=== PATIENT | female | born 1965 | race Caucasian/White ===

== ENCOUNTER 2023-01-14 23:35 | Inpatient (IN) | payer MEDICAID, SELFPAY ==
[2023-01-14 23:36] VITALS: BP 139/117; PULSE 99; RESP 20; TEMP 36.8; O2SAT 96
--- NOTE | 2023-01-14 23:42 | W.ED.PSYCHS ---
HPI - Psych General: Chief Complaint: Psychiatric Symptoms Stated Complaint: SI Time Seen by Provider: 01/14/23 23:41 Source: patient and EMS Mode of arrival: EMS Limitations: no limitations History of Present Illness: 57-year-old female states that she has been having increasing depression. She states that she feels like she is treated poorly by her family and feels very alone she states she supposed to take meds for depression but she has not been taking them she states she is having suicidal thoughts she try to cut herself yesterday patient been admitted roughly 1 year ago to psych facility she denies any worsening improving factors Associated symptoms: Reports depression and suicidal ideation Review of Systems Const: Denies: fever(s), chills, body aches or change in appetite ENMT: Denies: throat pain or dental pain Card: Denies: chest pain Resp: Denies: dyspnea GI: Denies: abdominal pain, nausea, vomiting or diarrhea Musc: Denies: neck pain or back pain Skin/Breast: Denies: rash Neuro: Denies: headache(s) Psych: Reports: depression and suicidal ideation Physical Exam Const: COMMON NORMALS: patient oriented x3 HENMT: COMMON NORMALS: normocephalic and atraumatic HEAD & SCALP: normocephalic and atraumatic Eye: COMMON NORMALS: conjunctivae normal CONJUNCTIVA: Yes conjunctivae normal Neck/C-Spine: COMMON NORMALS: full ROM Chest: COMMONS NORMALS: normal inspection of the chest Resp: COMMON NORMALS: normal respiratory effort Cardio: COMMON NORMALS: regular rate RATE: regular rate Extremity: COMMON NORMALS: normal to inspection Neuro: COMMON NORMALS: patient oriented x3 Psych: COMMON NORMALS: mental status grossly normal MOOD & AFFECT: Yes depressed mood and Yes tearful THOUGHT CONTENT: Yes Suicidality present Course Vital Signs: Vital signs: Vital Signs Temperature 98.2 F 01/14/23 23:36 Pulse Rate 99 01/14/23 23:36 Respiratory Rate 20 H 01/14/23 23:36 Blood Pressure 139/117 01/14/23 23:36 Pulse Oximetry 96 01/14/23 23:36 [facility] - Psych Medical Decision Making Patient presents here with suicidal ideations she is medically cleared placed under 96-hour hold and will admit to the psych unit Medical Records I reviewed the patient's medical records. Lab Data I reviewed the patient's lab results. 01/14/23 00:00 01/14/23 00:00 Laboratory Results WBC 7.95 10^3/uL (3.29-11.43) 01/14/23 00:00 RBC 4.18 10^6/uL (3.85-5.65) 01/14/23 00:00 Hgb 12.70 g/dL (11.27-16.99) 01/14/23 00:00 Hct 38.1 % (36-47) 01/14/23 00:00 MCV 91.1 fl (85-98) 01/14/23 00:00 MCH 30.4 pg (27-33) 01/14/23 00:00 MCHC 33.3 g/dL (30-55) 01/14/23 00:00 RDW 12.7 % (12.1-15.1) 01/14/23 00:00 Plt Count 300 10^3/cmm (157-399) 01/14/23 00:00 MPV 8.6 fL (7.4-10.4) 01/14/23 00:00 Neut % (Auto) 64.1 % 01/14/23 00:00 Lymph % (Auto) 24.3 % 01/14/23 00:00 [place] % (Auto) 8.7 % 01/14/23 00:00 Eos % (Auto) 2.0 % 01/14/23 00:00 Baso % (Auto) 0.5 % 01/14/23 00:00 Neut # (Auto) 5.10 10^3/uL (1.8-7.7) 01/14/23 00:00 Lymph # (Auto) 1.9 10^3/uL (0.8-4.8) 01/14/23 00:00 [place] # (Auto) 0.7 10^3/uL (0.2-0.9) 01/14/23 00:00 Eos # (Auto) 0.2 10^3/uL (0.0-0.8) 01/14/23 00:00 Baso # (Auto) 0.0 10^3/uL (0.0-0.1) 01/14/23 00:00 Nucleated RBC % (auto) 0 % 01/14/23 00:00 Nucleated RBCs # 0.0 /100WBC 01/14/23 00:00 Sodium 141 mmol/L (136-145) 01/14/23 00:00 Potassium 3.2 mmol/L (3.5-5.1) L 01/14/23 00:00 Chloride 106 mmol/L (98-107) 01/14/23 00:00 Carbon Dioxide 23 mmol/L (22-29) 01/14/23 00:00 Anion Gap 15.2 (5-19) 01/14/23 00:00 BUN 12 mg/dL (6-20) 01/14/23 00:00 Creatinine 0.6 mg/dL (0.5-0.9) 01/14/23 00:00 GFR Calculation 102.3 mL/min (90-130) 01/14/23 00:00 Glucose 152 mg/dL (65-115) H 01/14/23 00:00 Calculated Osmolality 295 mOsm/kg (285-295) 01/14/23 00:00 Calcium 9.8 mg/dL (8.5-10.5) 01/14/23 00:00 Total Bilirubin 0.2 mg/dL (0.15-1.2) 01/14/23 00:00 AST 9 U/L (0-32) 01/14/23 00:00 ALT 8 U/L (0-33) 01/14/23 00:00 Alkaline Phosphatase 93 U/L (35-105) 01/14/23 00:00 Total Protein 7.0 g/dL (6.6-8.7) 01/14/23 00:00 Albumin 4.3 g/dL (3.5-5.2) 01/14/23 00:00 Globulin 2.7 g/dL (1.3-4.6) 01/14/23 00:00 Salicylates < 0.3 mg/dL (3-10) L 01/14/23 00:00 Acetaminophen 6.7 ug/mL (10-30) L 01/14/23 00:00 Ethyl Alcohol < 10 mg/dL (0-10) 01/14/23 00:00 No radiology studies performed this visit Discharge Plan Discharge Admit Provider: Noam Ambrocio Clinical Impression: Suicidal ideation Condition: Stable Coding Level of Care Code ED Neighborhood Conservation Officer for Daren Henry
[2023-01-15 00:19] LABS: Basophils % 0.5 %; Eosinophils # 0.2 10^3/uL (0.0-0.8); Hematocrit 38.1 % (36-47); Lymphocytes # 1.9 10^3/uL (0.8-4.8); Lymphocytes % 24.3 %; Mean Corpuscular HGB Conc 33.3 g/dL (30-55); Mean Corpuscular Hemoglobin 30.4 pg (27-33); Mean Corpuscular Volume 91.1 fl (85-98); Mean Platelet Volume 8.6 fL (7.4-10.4); Monocytes # 0.7 10^3/uL (0.2-0.9); Monocytes % 8.7 %; Neutrophils % 64.1 %; Nucleated Red Blood Cells % 0 %; Platelet Count 300 10^3/cmm (157-399); Red Blood Count 4.18 10^6/uL (3.85-5.65); Red Cell Distribution Width 12.7 % (12.1-15.1); White Blood Count 7.95 10^3/uL (3.29-11.43)
[2023-01-15 00:23] LABS: Acetaminophen 6.7 ug/mL (10-30); Alanine Aminotransferase 8 U/L (0-33); Albumin Level 4.3 g/dL (3.5-5.2); Alkaline Phosphatase 93 U/L (35-105); Anion Gap 15.2 (5-19); Aspartate Amino Transferase 9 U/L (0-32); Blood Urea Nitrogen 12 mg/dL (6-20); Calcium 9.8 mg/dL (8.5-10.5); Carbon Dioxide 23 mmol/L (22-29); Chloride 106 mmol/L (98-107); Globulin 2.7 g/dL (1.3-4.6); Glomerular Filtration Rate 102.3 mL/min (90-130); Glucose 152 mg/dL (65-115); Osmolality Calculated 295 mOsm/kg (285-295); Potassium 3.2 mmol/L (3.5-5.1); Sodium 141 mmol/L (136-145); Total Bilirubin 0.2 mg/dL (0.15-1.2)
[2023-01-15 00:24] LABS: Alcohol Level < 10 mg/dL (0-10); Salicylate < 0.3 mg/dL (3-10)
--- NOTE | 2023-01-15 00:43 | PC.NURSE ---
96 Hour Involuntary Hold Rights have been read to patient and a copy of the same has been given to her. Ice Cream Maker Asif Saunders was present at bedside at the time of presentation.
[2023-01-15] MEDS: LORazepam 2 mg/mL INJ 1 mL IV (01:00)
[2023-01-15 01:13] VITALS: BP 165/74; PULSE 92; RESP 20; TEMP 36.8; O2SAT 97
[2023-01-15 06:00] VITALS: RESP 18
--- NOTE | 2023-01-15 06:44 | PC.NURSE ---
Unable to wake patient due to patient deep sleep
[2023-01-15 08:45] VITALS: PULSE 88; RESP 18; O2SAT 98
[2023-01-15 09:06] LABS: Add Urine Culture? No; Amorphous Sediment Urine TRACE /hpf; Bacteria Urine TRACE /hpf; Bilirubin Urine Neg (Negative); Blood Urine Neg (Negative); Glucose Urine UA Norm (Normal); Ketones Urine Negative (Negative); Leukocyte Esterase Urine Negative (Negative); Mucus Urine 3+ /hpf; Nitrate Urine Negative (Negative); Protein Urine Neg (Negative); RBC Urine 0-4 /hpf (0-2); Squamous Epithelial Cell Urine 0-4 /hpf (0-5); Urine Appearance Clear (CLEAR); Urine Color Yellow (Yellow); Urobilinogen Urine Norm (Negative); WBC Urine 0-4 /hpf (0-5); pH Urine 6 (5-7)
[2023-01-15 09:28] LABS: Amphetamines Screen Urine Negative (Negative); Barbiturates Screen Urine Negative (Negative); Benzodiazepines Screen Urine Positive (Negative); Cocaine Screen Urine Negative (Negative); Opiate Screen Urine Negative (Negative); PCP Screen Urine Negative (Negative); THC Screen Urine Negative (Negative)
[2023-01-15 12:11] LABS: Glucose Point of Care 108 mg/dL (70-110)
[2023-01-15] MEDS: acetaminophen 325 mg Tablet 650 MG PO (13:10)
[2023-01-15 14:00] VITALS: BP 145/90; PULSE 83; RESP 20; TEMP 36.6; O2SAT 97
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
[2023-01-15 16:44] VITALS: BP 145/90; PULSE 83; RESP 20; TEMP 36.6; O2SAT 97
== END 2023-01-15 17:20 | disposition home or self-care (01) | DRG 881 ==
LOC: ER 01-15 00:17 → NP 01-15 00:23
PROVIDERS: Psychiatry & Neurology Psychiatry; Admitting Provider Psychiatry & Neurology Psychiatry; Emergency Provider Emergency Medicine; Visit Provider Psychiatry & Neurology Psychiatry
DX: F34.1 Dysthymic disorder (principal); R45.851 Suicidal ideations; F32.9 Major depressive disorder, single episode, unspecified; F43.10 Post-traumatic stress disorder, unspecified; J45.909 Unspecified asthma, uncomplicated; I10 Essential (primary) hypertension; E11.9 Type 2 diabetes mellitus without complications; Z88.0 Allergy status to penicillin; Z79.84 Long term (current) use of oral hypoglycemic drugs
CPT/HCPCS: 36415; 36416; 80053; 80306; 80307; 81001; 82962; 85025; 96374; 97150; 97165; 99285; J2060

== ENCOUNTER 2023-11-15 14:25 | Inpatient (IN) | payer MEDICAID, SELFPAY ==
[2023-11-15 14:27] VITALS: BP 138/87; PULSE 99; TEMP 36.8; O2SAT 97; BMI 24.2
--- NOTE | 2023-11-15 14:38 | ED.C_ITS ---
HPI - Psych 2 General: Chief Complaint: Psychiatric Symptoms Stated Complaint: si Time Seen by Provider: 11/15/23 14:27 Source: patient and EMS Mode of arrival: EMS Limitations: no limitations History of Present Illness: 58-year-old female with history depressi on she states she has been out of her psych meds for last 2 weeks and is having severe depression states she just wants to go to sleep and not wake up she is tearful states she has been under a lot of stress denies any specific plan. Denies any worse improving factors. Associated symptoms: Reports depression Review of Systems 2 Const: Denies: fever(s), chills, body aches or change in appetite ENMT: Denies: throat pain or dental pain Card: Denies: chest pain Resp: Denies: dyspnea GI: Denies: abdominal pain, nausea, vomiting or diarrhea Musc: Denies: neck pain or back pain Skin/Breast: Denies: rash Neuro: Denies: headache(s) Psych: Reports: depression PFS ED 2 PFSH: Medical History Psychiatric care Dysthymic disorder Physical Exam 2 Const: COMMON NORMALS: no acute distress, patient oriented x3 and healthy appearing HENMT: COMMON NORMALS: normocephalic and atraumatic HEAD & SCALP: n ormocephalic and atraumatic Neck/C-Spine: COMMON NORMALS: full ROM and supple Chest: COMMONS NORMALS: normal inspection of the chest Resp: COMMON NORMALS: normal respiratory effort Cardio: COMMON NORMALS: regular rate, regular rhythm and No murmurs present (Cardio) RATE: regular rate RHYTHM: regular rhythm Extremity: COMMON NORMALS: normal to inspection and full ROM Neuro: COMMON NORMALS: patient oriented x3, moves all extremities and no focal motor deficits Psych: COMMON NORMALS: mental status grossly normal, Normal thought process present and cooperative MOOD & AFFECT: Yes depressed mood THOUGHT PROCESS: Normal thought process present Skin: COMMON NORMALS: no rashes or lesions noted and no wounds GENERAL SKIN EXAM: no rashes or lesions noted Course 2 Vital Signs: Vital signs: Vital Signs Temperature 98.3 F 11/15/23 14:27 Pulse Rate 99 11/15/23 14:27 Blood Pressure 138/87 11/15/23 14:27 Pulse Oximetry 97 11/15/23 14:27 Oxygen Delivery Me thod Room Air 11/15/23 14:27 MDM - Psych Medical Decision Making Patient presents here with severe depression she voluntarily wants to be admitted to the psych urias for depression she is medically cleared I spoke to psychiatrist and will admit Medical Records I reviewed the patient's medical records. Lab Data I reviewed the patient's lab results. 11/15/23 14:39 11/15/23 14:39 Laboratory Results WBC 5.83 10^3/uL (3.29-11.43) 11/15/23 14:39 RBC 4.27 10^6/uL (3.85-5.65) 11/15/23 14:39 Hgb 13.10 g/dL (11.27-16.99) 11/15/23 14:39 Hct 38.0 % (36-47) 11/15/23 14:39 MCV 89.0 fl (85-98) 11/15/23 14:39 MCH 30.7 pg (27-33) 11/15/23 14:39 MCHC 34.5 g/dL (30-55) 11/15/23 14:39 RDW 11.7 % (12.1-15.1) L 11/15/23 14:39 Plt Count 275 10^3/cmm (157-399) 11/15/23 14:39 MPV 9.3 fL (7.4-10.4) 11/15/23 14:39 Neut % (Auto) 58.5 % 11/15/23 14:39 Lymph % (Auto) 27.1 % 11/15/23 14:39 [place] % (Auto) 10.6 % 11/15/23 14:39 Eos % (Auto) 3.1 % 11/15/23 14:39 Baso % (Auto) 0.5 % 11/15/23 14:39 Neut # (Auto) 3.41 10^3/uL (1.8-7.7) 11/15/23 14:39 Lymph # (Auto) 1.6 10^3/uL (0.8-4.8) 11/15/23 14:39 [place] # (Auto) 0.6 10^3/uL (0.2-0.9) 11/15/23 14:39 Eos # (Auto) 0.2 10^3/uL (0.0-0.8) 11/15/23 14:39 Baso # (Auto) 0.0 10^3/uL (0.0-0.1) 11/15/23 14:39 Nucleated RBC % (auto) 0 % 11/15/23 14:39 Nucleated RBCs # 0.0 /100WBC 11/15/23 14:39 Sodium 139 mmol/L (136-145) 11/15/23 14:39 Potassium 3.6 mmol/L (3.5-5.1) 11/15/23 14:39 Chloride 106 mmol/L (98-107) 11/15/23 14:39 Anion Gap 16.6 (5-19) 11/15/23 14:39 BUN 16 mg/dL (8-23) 11/15/23 14:39 Creatinine 0.7 mg/dL (0.5-0.9) 11/15/23 14:39 Calculated Osmolality 292 mOsm/kg (285-295) 11/15/23 14:39 Calcium 9.0 mg/dL (8.5-10.5) 11/15/23 14:39 Total Bilirubin 0.2 mg/dL (0.15-1.2) 11/15/23 14:39 AST 9 U/L (0-32) 11/15/23 14:39 ALT 7 U/L (0-33) 11/15/23 14:39 Total Protein 6.9 g/dL (6.6-8.7) 11/15/23 14:39 Albumin 4.1 g/dL (3.5-5.2) 11/15/23 14:39 Globulin 2.8 g/dL (1.3-4.6) 11/15/23 14:39 Urine Opiates Screen Negative ng/mL (Negative) 11/15/23 14:50 Ur Barbiturates Screen Negative ng/mL (Negative) 11/15/23 14:50 Ur Phencyclidine Scrn Negative ng/mL (Negative) 11/15/23 14:50 Ur Amphetamines Screen Negative ng/mL (Negative) 11/15/23 14:50 U Benzodiazepines Scrn Negative ng/mL (Negative) 11/15/23 14:50 Urine Cocaine Screen Negative ng/mL (Negative) 11/15/23 14:50 U Marijuana (THC) Screen Negative ng/mL (Negative) 11/15/23 14:50 No radiology studies performed this visit Discharge Plan Discharge Patient Disposition: Admitted As Inpatient Clinical Impression: Depression Condition: Stable Coding Level of Care Code ED Serology Technician for Daren Henry
[2023-11-15 14:59] LABS: Basophils % 0.5 %; Eosinophils # 0.2 10^3/uL (0.0-0.8); Eosinophils % 3.1 %; Lymphocytes # 1.6 10^3/uL (0.8-4.8); Lymphocytes % 27.1 %; Mean Corpuscular HGB Conc 34.5 g/dL (30-55); Mean Corpuscular Hemoglobin 30.7 pg (27-33); Mean Platelet Volume 9.3 fL (7.4-10.4); Monocytes # 0.6 10^3/uL (0.2-0.9); Monocytes % 10.6 %; Neutrophils # 3.41 10^3/uL (1.8-7.7); Neutrophils % 58.5 %; Nucleated Red Blood Cells % 0 %; Platelet Count 275 10^3/cmm (157-399); Red Blood Count 4.27 10^6/uL (3.85-5.65); Red Cell Distribution Width 11.7 % (12.1-15.1); White Blood Count 5.83 10^3/uL (3.29-11.43)
[2023-11-15 15:25] LABS: Amphetamines Screen Urine Negative (Negative); Barbiturates Screen Urine Negative (Negative); Benzodiazepines Screen Urine Negative (Negative); Cocaine Screen Urine Negative (Negative); Opiate Screen Urine Negative (Negative); PCP Screen Urine Negative (Negative); THC Screen Urine Negative (Negative)
[2023-11-15 15:25] LABS: Alanine Aminotransferase 7 U/L (0-33); Albumin Level 4.1 g/dL (3.5-5.2); Alkaline Phosphatase 106 U/L (35-105); Anion Gap 16.6 (5-19); Aspartate Amino Transferase 9 U/L (0-32); Blood Urea Nitrogen 16 mg/dL (8-23); Carbon Dioxide 20 mmol/L (22-29); Chloride 106 mmol/L (98-107); Creatinine Clr Calc Pharmacy 84.7242; Globulin 2.8 g/dL (1.3-4.6); Glomerular Filtration Rate 85.4 mL/min (90-130); Glucose 152 mg/dL (65-115); Osmolality Calculated 292 mOsm/kg (285-295); Potassium 3.6 mmol/L (3.5-5.1); Sodium 139 mmol/L (136-145); Total Bilirubin 0.2 mg/dL (0.15-1.2); Total Protein 6.9 g/dL (6.6-8.7)
[2023-11-15 15:27] LABS: Acetaminophen < 5.0 ug/mL (10-30); Alcohol Level < 10 mg/dL (0-10); Salicylate < 0.3 mg/dL (3-10)
[2023-11-15 16:36] VITALS: BP 138/90; PULSE 86; RESP 20; TEMP 36.8; O2SAT 98
[2023-11-15 16:47] VITALS: BP 138/87; PULSE 99; TEMP 36.8; O2SAT 97
--- NOTE | 2023-11-15 18:44 | PC.NURSE ---
ADMIT PT CAME TO THE ER TO BE WITH C/O WORSENING DEPRESSION. UPON ADMIT TO NPU PT IS TEARFUL AND LABILE. PT WILL BE CRYING HEAVILY WITH TEARS STREAMING DOWN HER FACE THEN SUDDENLY NOT CRYING AT ALL. PT STATES THAT SHE HAS BEEN UNABLE TO SEE HER PSYCHIATRIST THEREFORE UNABLE TO GET HER PRESCRIPTIONS REFILLED. PT STATES THAT HER MOTHER IS DYING. WHILE TALKING ABOUT HER MOTHER PT BEGAN CRYING AND STATES IF MY MOTHER DIES I DON'T KNOW WHAT I WILL DO SHE IS EVERYTHING TO ME, MY WHOLE LIFE, MY CONFIDANT. PT STATES THAT SHE IS HOPING TO BE ABLE TO GET HER MEDICATIONS SORTED OUT TO BE ABLE TO HANDLE HER LIFE STRESSES.
[2023-11-15] MEDS: hyDROXYzine 25 mg Capsule 50 MG PO (19:42)
[2023-11-15] MEDS: haloperidol 5 mg Tablet PO (20:35)
[2023-11-15] MEDS: trazodone 50 mg Tablet PO (20:35)
[2023-11-15 22:00] VITALS: BP 133/81; PULSE 79; RESP 18; TEMP 36.4; O2SAT 97
[2023-11-15] MEDS: ibuprofen 600 mg Tablet PO (22:44)
[2023-11-16] VITALS (7 sets, daily range): BP systolic 90–124; BP diastolic 60–81; PULSE 66–85; RESP 15–20; TEMP 36.6–36.8; O2SAT 95–99
[2023-11-16 08:00] LABS: Glucose Point of Care 115 mg/dL (70-110)
[2023-11-16] MEDS: budesonide 0.5 mg/2 mL Neb INHALATION ×2 (08:46→20:45)
[2023-11-16] MEDS: albuterol 2.5 mg/3 mL Neb INHALATION ×3 (08:47→20:45)
[2023-11-16] MEDS: acetaminophen 325 mg Tablet 650 MG PO (09:28)
[2023-11-16] MEDS: venlafaxine ER (24HR) 75 mg Capsule 225 MG PO (09:28)
[2023-11-16] MEDS: gabapentin 100 mg Capsule PO ×3 (09:28→20:31)
[2023-11-16] MEDS: loratadine 10 mg Tablet PO (09:29)
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
[2023-11-16 11:57] LABS: Glucose Point of Care 144 mg/dL (70-110)
[2023-11-16 17:19] LABS: Glucose Point of Care 138 mg/dL (70-110)
[2023-11-16 20:12] LABS: Glucose Point of Care 130 mg/dL (70-110)
[2023-11-16] MEDS: haloperidol 1 mg Tablet PO (20:31)
[2023-11-16] MEDS: ibuprofen 600 mg Tablet PO (21:09)
[2023-11-17] VITALS (8 sets, daily range): BP systolic 108–139; BP diastolic 66–85; PULSE 65–78; RESP 15–20; TEMP 36.7–36.8; O2SAT 92–100
[2023-11-17 07:38] LABS: Glucose Point of Care 104 mg/dL (70-110)
[2023-11-17] MEDS: budesonide 0.5 mg/2 mL Neb INHALATION ×2 (08:11→20:59)
[2023-11-17] MEDS: albuterol 2.5 mg/3 mL Neb INHALATION ×4 (08:11→20:59)
[2023-11-17] MEDS: fluoxetine 20 mg Capsule PO (09:10)
[2023-11-17] MEDS: gabapentin 100 mg Capsule PO ×3 (09:10→20:26)
[2023-11-17] MEDS: loratadine 10 mg Tablet PO (09:11)
--- NOTE | 2023-11-17 09:22 | PC.NURSE ---
SITTING ON BED, RESPIRATORY HERE TO DO BREATHING TREATMENT. PT IS NOTED TO HAVE A FLAT AFFECT AND DEPRESSED MOOD. PT STATES SHE THINKS SHE WILL BE DISCHARGING TODAY. DENIES PAIN. DENIES SI/HI AND AVH AT THIS TIME. RATES ANXIETY 2/10 AND DEPRESSION 0/10. PT STATES HER GOAL TODAY IS NOTHING I GUESS. ALL QUESTIONS ANSWERED AND SUPPORT WAS VOICED.
[2023-11-17] MEDS: ibuprofen 600 mg Tablet PO ×3 (10:28→20:26)
[2023-11-17 11:04] LABS: Glucose Point of Care 182 mg/dL (70-110)
--- NOTE | 2023-11-17 17:07 | P.NPUPN_ITS ---
Subjective NPU 2 Subjective: 58-year-old female admitted with major d epressive disorder with reports of command auditory hallucinations and worsening depression. The patient reported no side effects from her medication. She reported continued depression but stated that she was feeling better already. She had expressed motivation to leave the hospital tomorrow and resume her treatment on an outpatient basis. She had reported struggles with keeping track with her medication regimen and stated that she may benefit from having help at home to ensure her compliance with her medication regimen. She had reported feeling less hopeless. She did not report hearing voices today. Mental Status Exam 2 MSE Comments: Is a Pleasant white female who appeared in mild to moderate distress. Her gait was within normal limits. Her hygiene was poor. There was no evidence of any abnormal involuntary motor movements tics or tremors appreciated. Her speech was normal in regards to rate rhythm and prosody. Her mood was described as better. Her affect was less restricted today. Her thought process was linear, logical and goal-directed. Her thought content showed no evidence of active homicidal ideation or suicidal ideation today. There was no clear evidence of delusional thinking. She did not appear to be responding internal stimuli. Her attention span was fair. Her insight is limited. Her judgment appeared poor. Her impulse control appeared poor. She was alert and oriented to person, place and time. Her fund of knowledge was below average. Her recent and remote memory appeared grossly intact. Vitals/I&O/Wt Last Vital Signs Temp 98.2 F 11/17/23 14:00 Pulse 65 11/17/23 15:08 Resp 18 11/17/23 15:08 BP 108/66 11/17/23 14:00 Pulse Ox 96 11/17/23 15:08 O2 Del Method Room Air 11/17/23 15:08 11/17/23 11/17/23 11/17/23 06:59 14:59 22:59 Intake Total 358 / 358 Balance 358 / 358 Data NPU 11/15/23 14:39 11/15/23 14:39 A&P Assessment and plan (1) Dysthymic disorder: (2) PTSD (post-traumatic stress disorder): (3) MDD (major depressive disorder), recurrent, severe, with psychosis: Plan 57-year-old white female history of multiple inpatient hospitalizations admitted with suicidal ideation and command auditory hallucinations requesting medication change due to worsening depression and psychosis. 1. ?Encourage individual, group and milieu therapy. 2.??? Increase prozac 30mg daily. Continue Haldol 1mg at night to target psychosis. 3.??? Continue q-15 minute checks for safety.? 4. Restart other outpatient medications. Involuntary Hold Information 2 96 Hour Hold: 96 Hour Involuntary Admission: No Attestations NPU 2 Medical Necessity Statement*: Inpatient hospitalization is medically necessary and deemed to be clinically appropriate intervention at this time.? We will monitor/initiate medications and make changes as indicated.?Her likely length of stay is 1-2 days. Coding Level of Care Code Acute Code for g Fwd Diagnoses Dysthymic disorder F34.1 PTSD (post-traumatic stress disorder) F43.10 MDD (major depressive disorder), recurrent, severe, with psychosis F33.3
[2023-11-17] MEDS: haloperidol 1 mg Tablet PO (20:26)
[2023-11-17 21:02] LABS: Glucose Point of Care 157 mg/dL (70-110)
[2023-11-18 05:59] VITALS: BP 131/81; PULSE 79; RESP 16; TEMP 37; O2SAT 96
[2023-11-18] MEDS: acetaminophen 325 mg Tablet 650 MG PO ×2 (05:59→11:40)
[2023-11-18 07:30] LABS: Glucose Point of Care 86 mg/dL (70-110)
[2023-11-18] MEDS: fluoxetine 10 mg Capsule 30 MG PO (08:19)
[2023-11-18] MEDS: gabapentin 100 mg Capsule PO (08:19)
[2023-11-18] MEDS: loratadine 10 mg Tablet PO (08:19)
--- NOTE | 2023-11-18 08:44 | PC.NURSE ---
PT IN [facility] TODAY. REPORTS SHE SLEPT WELL. PT STATES SHE IS ANTICIPATING DISCHARGE TODAY AND IS EXCITED TO LEAVE. RATES ANXIETY AND DEPRESSION 0/10. PT DENIES PAIN. DENIES SI/HI AND AVH AT THIS TIME. ALL QUESTIONS ANSWERED AND SUPPORT IS VOICED.
[2023-11-18 09:42] VITALS: BP 131/81; PULSE 79; RESP 16; TEMP 37; O2SAT 96
[2023-11-18] MEDS: albuterol 2.5 mg/3 mL Neb INHALATION (09:51)
[2023-11-18 09:52] VITALS: PULSE 78; RESP 16; O2SAT 96
[2023-11-18 11:55] LABS: Glucose Point of Care 147 mg/dL (70-110)
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
== END 2023-11-18 13:56 | disposition home or self-care (01) | DRG 885 ==
LOC: ER 15:16 → NP 15:42
PROVIDERS: Admitting Provider Psychiatry & Neurology Psychiatry; Emergency Provider Emergency Medicine; Visit Provider Psychiatry & Neurology Psychiatry
DX: F32.3 Major depressive disorder, single episode, severe with psychotic features (principal); R45.851 Suicidal ideations; F43.10 Post-traumatic stress disorder, unspecified; F34.1 Dysthymic disorder; Z62.810 Personal history of physical and sexual abuse in childhood
CPT/HCPCS: 36416; 80053; 80306; 80307; 82962; 85025; 94640; 97150; 97165; 99285; J7613; J7626

== ENCOUNTER 2023-12-13 19:32 | Emergency (ER) | payer MEDICAID, SELFPAY ==
[2023-12-13 19:34] VITALS: BP 133/95; PULSE 81; RESP 18; TEMP 36.6; O2SAT 97; BMI 24.2
--- NOTE | 2023-12-13 20:13 | CTR_ITS ---
PROCEDURE INFORMATION: Exam: CT Abdomen And Pelvis Without Contrast Exam date and time: 12/13/2023 9:00 PM Age: 58 years old Clinical indication: Abdominal pain; Prior surgery; Surgery date: 6+ months; Surgery type: Gb; Additional info: Llq abdominal pain, coffee ground emesis TECHNIQUE: Imaging protocol: Computed tomography of the abdomen and pelvis without contrast. Radiation optimization: All CT scans at this facility use at least one of these dose optimization techniques: automated exposure control; mA and/or kV adjustment per patient size (includes targeted exams where dose is matched to clinical indication); or iterative reconstruction. COMPARISON: No relevant prior studies available. RADIATION DOSE METRICS: Total DLP (mGy-cm): 493 FINDINGS: Lungs: Right basilar pulmonary cyst. Right basilar calcified granuloma. Liver: The liver is normal. Gallbladder and biliary ducts: There has been a cholecystectomy. No biliary ductal dilatation. Pancreas: The pancreas is normal. Spleen: The spleen demonstrates punctate calcifications, consistent with remote granulomatous organism exposure. Adrenal glands: The adrenal glands are normal. Kidneys and ureters: The kidneys are normal. Stomach and bowel: Colonic diverticulosis without evidence of diverticulitis. Dense contrast material noted throughout the colon. No bowel obstruction. Appendix: A normal appendix is identified. Intraperitoneal space: No significant peritoneal free fluid. No free peritoneal air. Vasculature: The vasculature demonstrates diffuse moderate atherosclerotic calcification. Lymph nodes: No enlarged lymph nodes by size criteria. Urinary bladder: The bladder is normal. Reproductive: There has been a hysterectomy. Bones/joints: The spine demonstrates mild degenerative changes at multiple levels. Soft tissues: Soft tissues are unremarkable as visualized. CT/CT abdomen pelvis [facility] [id number] IMPRESSION: 1. No acute findings. 2. Dense contrast material throughout the colon. 3. Colonic diverticulosis without diverticulitis.
[2023-12-13 20:20] LABS: Basophils % 0.5 %; Eosinophils # 0.3 10^3/uL (0.0-0.8); Eosinophils % 4.5 %; Hematocrit 33.4 % (36-47); Lymphocytes # 1.7 10^3/uL (0.8-4.8); Lymphocytes % 30.5 %; Mean Corpuscular HGB Conc 34.1 g/dL (30-55); Mean Corpuscular Hemoglobin 30.5 pg (27-33); Mean Corpuscular Volume 89.3 fl (85-98); Mean Platelet Volume 9.1 fL (7.4-10.4); Monocytes # 0.6 10^3/uL (0.2-0.9); Monocytes % 11.3 %; Neutrophils # 2.96 10^3/uL (1.8-7.7); Nucleated Red Blood Cells % 0 %; Platelet Count 286 10^3/cmm (157-399); Red Blood Count 3.74 10^6/uL (3.85-5.65); Red Cell Distribution Width 12.1 % (12.1-15.1); White Blood Count 5.58 10^3/uL (3.29-11.43)
[2023-12-13 20:31] LABS: Alanine Aminotransferase 6 U/L (0-33); Alkaline Phosphatase 91 U/L (35-105); Anion Gap 14.3 (5-19); Aspartate Amino Transferase 9 U/L (0-32); Blood Urea Nitrogen 27 mg/dL (8-23); Carbon Dioxide 23 mmol/L (22-29); Chloride 105 mmol/L (98-107); Creatinine Clr Calc Pharmacy 84.7242; Globulin 2.4 g/dL (1.3-4.6); Glomerular Filtration Rate 85.4 mL/min (90-130); Glucose 113 mg/dL (65-115); Lipase 13 U/L (13-60); Osmolality Calculated 294 mOsm/kg (285-295); Potassium 3.3 mmol/L (3.5-5.1); Sodium 139 mmol/L (136-145); Total Bilirubin 0.2 mg/dL (0.15-1.2); Total Protein 6.4 g/dL (6.6-8.7)
[2023-12-13] MEDS: sodium chloride 0.9% 1,000 ML 999 ML IV (20:43)
[2023-12-13 20:44] VITALS: RESP 17
[2023-12-13] MEDS: HYDROmorphone 1 mg/mL INJ 1 mL 0.5 MG IVP (20:44)
[2023-12-13] MEDS: ondansetron 2 mg/ML SDV 2 mL 4 MG IVP (20:45)
[2023-12-13 20:49] VITALS: BP 115/75; PULSE 68; RESP 12; O2SAT 98
[2023-12-13 20:59] LABS: Charge for UA Resulting for Rev
[2023-12-13 21:00] VITALS: BP 135/80; PULSE 69; RESP 13; O2SAT 97
[2023-12-13 21:02] LABS: Bilirubin Urine Negative (Negative); Blood Urine Negative (Negative); Glucose Urine UA Negative (Normal); Ketones Urine Negative (Negative); Leukocyte Esterase Urine Negative (Negative); Nitrate Urine Negative (Negative); Protein Urine Trace (Negative); Specific Gravity, Urine 1.019 (1.005-1.030); Urine Appearance Cloudy (CLEAR); Urine Color Yellow (Yellow)
[2023-12-13 21:15] LABS: Bacteria Urine None Seen /hpf; RBC Urine 0-2 /hpf (0-2)
[2023-12-13 22:00] VITALS: BP 122/79; PULSE 75; RESP 14; O2SAT 97
--- NOTE | 2023-12-13 23:12 | W.ED.ABDPA2 ---
HPI - Abdominal Pain General: Chief Complaint: Abdominal Pain Stated Complaint: abd pain Time Seen by Provider: 12/13/23 19:44 History of Present Illness: This patient is a 58-year-old white female who presents to the emergency department stating that she has had nausea and vomiting for the past 3 days. She feels bloated. She is having some diffuse abdominal pain but worse in the left lower quadrant. The reason she came in tonight as she states she vomited up some coffee-ground material. This happened once. He has not had any diarrhea. No fever. Normal urination. Associated Symptoms: Reports coffee ground emesis, nausea and vomiting Related Data Home Medications Medication Instructions Recorded Confirmed loratadine 10 mg tablet (Allergy 10 mg PO DAILY 01/15/23 11/16/23 Relief (loratadine)) dulaglutide 1.5 mg/0.5 mL 1.5 mg SUBCUT Q7D 11/16/23 11/16/23 subcutaneous pen injector (Trulicity) fluticasone 250 mcg-salmeterol 50 1 inh inhalation BID 11/16/23 11/16/23 mcg/dose blistr powdr for inhalation (Advair Diskus) gabapentin 100 mg capsule 100 mg PO TID 11/16/23 11/16/23 Previous Rx's Medication Instructions Recorded fluoxetine 10 mg capsule 30 mg (3 x 10 mg) PO DAILY #90 caps 11/18/23 haloperidol 1 mg tablet 1 mg PO 2100 30 days #30 tabs 11/18/23 trazodone 100 mg tablet 200 mg (2 x 100 mg) PO DAILY #60 11/18/23 tabs dicyclomine 20 mg tablet 20 mg PO QID #30 tabs 12/13/23 omeprazole magnesium 20 mg 20 mg PO DAILY #30 tabs 12/13/23 tablet,delayed release (Prilosec OTC) Allergies Allergy/AdvReac Type Severity Reaction Status Date / Time Iodinated Contrast Media Allergy ALGY-Rash Verified 12/13/23 19:38 Penicillins Allergy ALGY-Swell Verified 12/13/23 19:38 Lip/Tongue/Throat Review of Systems General: Reports: 10 or more systems reviewed and unremarkable except in HPI and below GI: Reports: abdominal pain (LLQ), nausea, vomiting and coffee ground emesis [facility] PFSH: Medical History Psychiatric care Dysthymic disorder Physical Exam Const: COMMON NORMALS: no acute distress, patient oriented x3 and no limitations GENERAL APPEARANCE: cooperative and comfortable HENMT: COMMON NORMALS: normocephalic, atraumatic, Normal nasal mucous membranes and turbinates present, moist oral mucous membranes and oropharynx normal HEAD & SCALP: normal to inspection, normocephalic and atraumatic FACE & SINUS: normal facial exam NOSE: Normal nasal mucous membranes and turbinates present Eye: COMMON NORMALS: Equal, round and reactive pupils present, EOMs intact bilaterally and conjunctivae normal GENERAL EYE: appearance normal, both eyes and all related structures CONJUNCTIVA: Yes conjunctivae normal PUPIL: Yes Equal, round and reactive pupils present Neck/C-Spine: COMMON NORMALS: supple and no JVD Chest: COMMONS NORMALS: normal inspection of the chest Resp: COMMON NORMALS: normal respiratory effort and clear to auscultation bilaterally AUSCULTATION: clear to auscultation bilaterally Cardio: COMMON NORMALS: no JVD, regular rate, regular rhythm, No gallops present (Cardio), No murmurs present (Cardio) and No rub (Cardio) RATE: regular rate RHYTHM: regular rhythm GI: COMMON NORMALS: Normal to inspection, nondistended, normoactive bowel sounds present, Soft to palpation and non-tender AUSCULTATION: Yes normoactive bowel sounds PALPATION: Yes Soft to palpation and Yes Tenderness to palpation present (GI) Details: LLQ (mild) : COMMON NORMALS: Yes no CVA tenderness BLADDER/KIDNEY EXAM: Yes no CVA tenderness Back/Pelvis: COMMON NORMALS: no CVA tenderness and thoracic and lumbar spine normal to inspection Extremity: COMMON NORMALS: normal to inspection Neuro: COMMON NORMALS: patient oriented x3 and CN's II-XII intact bilaterally Psych: COMMON NORMALS: mental status grossly normal, Normal thought process present and cooperative THOUGHT PROCESS: Normal thought process present Skin: COMMON NORMALS: no rashes or lesions noted, turgor normal and no jaundice GENERAL SKIN EXAM: no rashes or lesions noted and turgor normal Course Vital Signs: Vital signs: Vital Signs Temperature 97.9 F 12/13/23 19:34 Pulse Rate 75 12/13/23 22:00 Respiratory Rate 14 12/13/23 22:00 Blood Pressure 122/79 12/13/23 22:00 Pulse Oximetry 97 12/13/23 22:00 Oxygen Delivery Me thod Room Air 12/13/23 22:00 MDM - Abdominal Pain Medical Decision Making Patient was given IV fluids, Zofran and 0.5 mg of Dilaudid for her discomfort. She is feeling better. CBC, CMP and lipase were normal. Urinalysis was normal. CT scan of the abdomen pelvis was read by the radiologist as normal. Patient was discharged in stable condition with prescriptions for Bentyl and Prilosec. I recommended she follow-up with her primary care provider later this week for recheck. Lab Data 12/13/23 19:57 12/13/23 19:57 Labs/Radiology: Radiology Impressions Abdomen/Pelvis CT 12/13/23 20:13 IMPRESSION: 1. No acute findings. 2. Dense contrast material throughout the colon. 3. Colonic diverticulosis without diverticulitis. Laboratory Results WBC 5.58 10^3/uL (3.29-11.43) 12/13/23 19:57 RBC 3.74 10^6/uL (3.85-5.65) L 12/13/23 19:57 Hgb 11.40 g/dL (11.27-16.99) 12/13/23 19:57 Hct 33.4 % (36-47) L 12/13/23 19:57 MCV 89.3 fl (85-98) 12/13/23 19:57 MCH 30.5 pg (27-33) 12/13/23 19:57 MCHC 34.1 g/dL (30-55) 12/13/23 19:57 RDW 12.1 % (12.1-15.1) 12/13/23 19:57 Plt Count 286 10^3/cmm (157-399) 12/13/23 19:57 MPV 9.1 fL (7.4-10.4) 12/13/23 19:57 Neut % (Auto) 53.0 % 12/13/23 19:57 Lymph % (Auto) 30.5 % 12/13/23 19:57 [place] % (Auto) 11.3 % 12/13/23 19:57 Eos % (Auto) 4.5 % 12/13/23 19:57 Baso % (Auto) 0.5 % 12/13/23 19:57 Neut # (Auto) 2.96 10^3/uL (1.8-7.7) 12/13/23 19:57 Lymph # (Auto) 1.7 10^3/uL (0.8-4.8) 12/13/23 19:57 [place] # (Auto) 0.6 10^3/uL (0.2-0.9) 12/13/23 19:57 Eos # (Auto) 0.3 10^3/uL (0.0-0.8) 12/13/23 19:57 Baso # (Auto) 0.0 10^3/uL (0.0-0.1) 12/13/23 19:57 Nucleated RBC % (auto) 0 % 12/13/23 19:57 Nucleated RBCs # 0.0 /100WBC 12/13/23 19:57 Sodium 139 mmol/L (136-145) 12/13/23 19:57 Potassium 3.3 mmol/L (3.5-5.1) L 12/13/23 19:57 Chloride 105 mmol/L (98-107) 12/13/23 19:57 Carbon Dioxide 23 mmol/L (22-29) 12/13/23 19:57 Anion Gap 14.3 (5-19) 12/13/23 19:57 BUN 27 mg/dL (8-23) H 12/13/23 19:57 Creatinine 0.7 mg/dL (0.5-0.9) 12/13/23 19:57 GFR Calculation 85.4 mL/min (90-130) L 12/13/23 19:57 Glucose 113 mg/dL (65-115) 12/13/23 19:57 Calculated Osmolality 294 mOsm/kg (285-295) 12/13/23 19:57 Calcium 9.0 mg/dL (8.5-10.5) 12/13/23 19:57 Total Bilirubin 0.2 mg/dL (0.15-1.2) 12/13/23 19:57 AST 9 U/L (0-32) 12/13/23 19:57 ALT 6 U/L (0-33) 12/13/23 19:57 Alkaline Phosphatase 91 U/L (35-105) 12/13/23 19:57 Total Protein 6.4 g/dL (6.6-8.7) L 12/13/23 19:57 Albumin 4.0 g/dL (3.5-5.2) 12/13/23 19:57 Globulin 2.4 g/dL (1.3-4.6) 12/13/23 19:57 Lipase 13 U/L (13-60) 12/13/23 19:57 Urine Color Yellow (Yellow) 12/13/23 20:55 Urine Appearance Cloudy (CLEAR) A 12/13/23 20:55 Urine pH 6.0 (5-7) 12/13/23 20:55 Ur Specific [place] 1.019 (1.005-1.030) 12/13/23 20:55 Urine Protein Trace (Negative) A 12/13/23 20:55 Urine Glucose (UA) Negative (Normal) 12/13/23 20:55 Urine Ketones Negative (Negative) 12/13/23 20:55 Urine Blood Negative (Negative) 12/13/23 20:55 Urine Nitrate Negative (Negative) 12/13/23 20:55 Urine Bilirubin Negative (Negative) 12/13/23 20:55 Urine Urobilinogen 1.0 mg/dL (Negative) 12/13/23 20:55 Ur Leukocyte Esterase Negative (Negative) 12/13/23 20:55 Urine RBC 0-2 /hpf (0-2) 12/13/23 20:55 Urine WBC 6-10 /hpf (0-5) 12/13/23 20:55 Ur Squamous Epith Cells 6-10 /hpf (0-5) 12/13/23 20:55 Amorphous Sediment Not Reportable 12/13/23 20:55 Urine Bacteria None seen /hpf (NONE) 12/13/23 20:55 Hyaline Casts 0.40 /lpf 12/13/23 20:55 All radiology interpretation(s) finalized by discharge Discharge Plan Discharge Patient Disposition: Home Clinical Impression: Abdominal pain Condition: Stable Prescriptions: New Prilosec OTC 20 mg tablet,delayed release (DR/EC) 20 mg PO DAILY Qty: 30 2RF dicyclomine 20 mg tablet 20 mg PO QID Qty: 30 0RF No Action loratadine [Allergy Relief (loratadine)] 10 mg tablet 10 mg PO DAILY Advair Diskus 250-50 mcg/dose Blister With Device 1 inh INHALATION BID gabapentin 100 mg Capsule 100 mg PO TID Trulicity 1.5 mg/0.5 mL Pen Injector 1.5 mg SUBCUT Q7D fluoxetine 10 mg capsule 30 mg PO DAILY Qty: 90 1RF haloperidol 1 mg Tablet 1 mg PO 2100 30 Days Qty: 30 1RF trazodone 100 mg tablet 200 mg PO DAILY Qty: 60 1RF Discharge Orders: Discharge ED (Routine); Ordered 12/13/23 Ordered By: Rafita Bae Patient Instructions: Abdominal Pain (ED), Pain Management Coding Level of Care Code ED Critical Care Educator for Daren Henry
[2023-12-13 23:29] VITALS: BP 132/87; PULSE 68; RESP 13; O2SAT 98
== END 2023-12-13 23:32 | disposition home or self-care (01) ==
PROVIDERS: Emergency Provider Emergency Medicine
DX: R10.32 Left lower quadrant pain (principal); Z79.85 Long-term (current) use of injectable non-insulin antidiabetic drugs
CPT/HCPCS: 74176; 80053; 81003; 81015; 83690; 85025; 96361; 96374; 96375; 99285; J1170; J2405; J7030

== ENCOUNTER 2023-12-18 13:45 | Emergency (ER) | payer MEDICAID, SELFPAY ==
[2023-12-18 13:49] VITALS: BP 148/92; PULSE 87; RESP 18; TEMP 36.8; O2SAT 98; BMI 23.8
[2023-12-18 15:20] LABS: Glucose Point of Care 120 mg/dL (70-110)
[2023-12-18 16:22] LABS: Charge for UA Resulting for Rev
[2023-12-18 16:26] VITALS: O2SAT 98
[2023-12-18 16:26] LABS: Bilirubin Urine Negative (Negative); Blood Urine Negative (Negative); Glucose Urine UA Negative (Normal); Ketones Urine 1+ (Negative); Leukocyte Esterase Urine Negative (Negative); Nitrate Urine Negative (Negative); Protein Urine 1+ (Negative); Specific Gravity, Urine 1.029 (1.005-1.030); Urine Appearance Cloudy (CLEAR); Urine Color Dark Yellow (Yellow)
[2023-12-18 16:28] VITALS: RESP 16; O2SAT 97
[2023-12-18] MEDS: sodium chloride 0.9% 1,000 ML 999 ML IV (16:28)
[2023-12-18] MEDS: morphine 4 mg/mL SDV 1 mL IVP (16:28)
[2023-12-18] MEDS: ondansetron 2 mg/ML SDV 2 mL 4 MG IVP (16:29)
[2023-12-18 16:31] LABS: Basophils % 0.5 %; Eosinophils # 0.2 10^3/uL (0.0-0.8); Eosinophils % 3.3 %; Hematocrit 39.9 % (36-47); Lymphocytes # 1.6 10^3/uL (0.8-4.8); Lymphocytes % 28.3 %; Mean Corpuscular HGB Conc 34.1 g/dL (30-55); Mean Corpuscular Hemoglobin 30.2 pg (27-33); Mean Corpuscular Volume 88.7 fl (85-98); Monocytes # 0.5 10^3/uL (0.2-0.9); Monocytes % 8.4 %; Neutrophils # 3.24 10^3/uL (1.8-7.7); Neutrophils % 59.3 %; Nucleated Red Blood Cells % 0 %; Platelet Count 327 10^3/cmm (157-399); Red Cell Distribution Width 12.1 % (12.1-15.1); White Blood Count 5.47 10^3/uL (3.29-11.43)
[2023-12-18 16:37] LABS: SARS Covid-2 Antigen negative (Negative)
[2023-12-18 16:40] LABS: UA Manual Slide Review YES; UA Slide Review UA Slide Review Perf
[2023-12-18 16:41] LABS: Ketone (Acetest) Serum Negative (Negative)
[2023-12-18 16:41] LABS: Add Urine Culture? No; Calcium Oxalate Crystals Urine RARE /hpf; Mucus Urine 3+ /hpf
[2023-12-18 16:45] VITALS: BP 177/153; O2SAT 97
[2023-12-18 16:51] LABS: Alanine Aminotransferase 9 U/L (0-33); Albumin Level 4.5 g/dL (3.5-5.2); Alkaline Phosphatase 102 U/L (35-105); Anion Gap 16.4 (5-19); Aspartate Amino Transferase 11 U/L (0-32); Blood Urea Nitrogen 16 mg/dL (8-23); Calcium 9.7 mg/dL (8.5-10.5); Carbon Dioxide 24 mmol/L (22-29); Chloride 104 mmol/L (98-107); Creatinine Clr Calc Pharmacy 98.2739; Globulin 2.7 g/dL (1.3-4.6); Glucose 99 mg/dL (65-115); Lipase 14 U/L (13-60); Osmolality Calculated 293 mOsm/kg (285-295); Potassium 3.4 mmol/L (3.5-5.1); Sodium 141 mmol/L (136-145); Total Bilirubin 0.3 mg/dL (0.15-1.2); Total Protein 7.2 g/dL (6.6-8.7)
[2023-12-18 17:05] VITALS: BP 124/48; O2SAT 97
--- NOTE | 2023-12-18 17:15 | ED_ITS ---
Documented by User: PAUL Neely 12/18/23 17:23 HPI - Nausea/Vomiting/Diarrhea 2 General: Chief complaint: Nausea/Vomiting/Diarrhea Stated complaint: N/V Time Seen by Provider: 12/18/23 15:06 Source: patient Mode of arrival: ambulatory Limitations: no limitations History of Present Illness: Patient is a 58-year-old female presenting to the emergency department for nausea and vomiting going on greater than 1 week. She was seen here on 12/12, for the same complaint and at that time abnormal labs and abnormal CT, was prescribed Bentyl and Prilosec and encouraged to follow-up with primary care. She is stating her pain has continued to get worse and she is continue to have nausea vomiting to where she has not been taking her meds, and is a diabetic. She states her sugar was as low as 42 today, however at bedside [id number] glucose it is 120. She is stating her pain is 9/10 and is diffuse, worse with attempting to eat or drink. States she is unable to keep anything down. She has a follow-up scheduled with primary care for Wednesday, however states her symptoms got so bad and when she called to schedule an earlier appointment they told her to come to the ER. No fever, chest pain, shortness of breath, or other symptoms reported at this time. MD elicited complaint: nausea, vomiting and abdominal pain Pertinent past history: other (diabetes) Onset (ago): week(s) Description of vomiting: bilious Associated nausea: Yes Associated abdominal pain: Yes Location of pain: Diffuse Exacerbating factors: eating Associated symtoms: Reports nausea; Denies chest pain, diaphoresis, dizziness, dysuria, headache(s) or palpitations Related Data Home Medications Medication Instructions Recorded Confirmed loratadine 10 mg tablet (Allergy 10 mg PO DAILY 01/15/23 11/16/23 Relief (loratadine)) dulaglutide 1.5 mg/0.5 mL 1.5 mg SUBCUT Q7D 11/16/23 11/16/23 subcutaneous pen injector (Trulicity) fluticasone 250 mcg-salmeterol 50 1 inh inhalation BID 11/16/23 11/16/23 mcg/dose blistr powdr for inhalation (Advair Diskus) gabapentin 100 mg capsule 100 mg PO TID 11/16/23 11/16/23 Previous Rx's Medication Instructions Recorded fluoxetine 10 mg capsule 30 mg (3 x 10 mg) PO DAILY #90 caps 11/18/23 haloperidol 1 mg tablet 1 mg PO 2100 30 days #30 tabs 11/18/23 trazodone 100 mg tablet 200 mg (2 x 100 mg) PO DAILY #60 11/18/23 tabs dicyclomine 20 mg tablet 20 mg PO QID #30 tabs 12/13/23 omeprazole magnesium 20 mg 20 mg PO DAILY #30 tabs 12/13/23 tablet,delayed release (Prilosec OTC) ondansetron HCl 4 mg tablet 4 mg PO Q8H #30 tabs 12/18/23 Allergies Allergy/AdvReac Type Severity Reaction Status Date / Time Iodinated Contrast Media Allergy ALGY-Rash Verified 12/13/23 19:38 Penicillins Allergy ALGY-Swell Verified 12/13/23 19:38 Lip/Tongue/Throat Review of Systems 2 General: Reports: 10 or more systems reviewed and unremarkable except in HPI and below Const: Reports: change in appetite; Denies: fever(s), chills, change in weight or diaphoresis ENMT: Denies: throat pain or hoarseness Card: Denies: chest pain, palpitations or lightheadedness Resp: Denies: dyspnea, productive cough or wheezing GI: Reports: abdominal pain, nausea and vomiting; Denies: hematemesis, diarrhea or hematochezia : Denies: flank pain, difficulty voiding, dysuria, urinary frequency or urinary urgency Musc: Denies: neck pain or back pain Skin/Breast: Denies: rash or new lesions Neuro: Denies: headache(s) or dizziness PFSH ED 2 PFSH: Medical History Depression Psychiatric care Dysthymic disorder Physical Exam 2 Const: COMMON NORMALS: no acute distress, average body habitus, patient oriented x3, no limitations, healthy appearing, alert and well nourished G ENERAL APPEARANCE: cooperative and comfortable ORIENTATION/CONSCIOUSNESS: Yes awake HENMT: COMMON NORMALS: normocephalic, atraumatic, hearing grossly normal bilaterally, external ears normal, Normal external nose present and Normal nasal mucous membranes and turbinates present HEAD & SCALP: normocephalic and atraumatic NOSE: Normal external nose present and Normal nasal mucous membranes and turbinates present EXTERNAL EAR: Yes external ears normal O THER: Dry oral mucosa Eye: COMMON NORMALS: Equal, round and reactive pupils present, EOMs intact bilaterally and conjunctivae normal CONJUNCTIVA: Yes conjunctivae normal P UPIL: Yes Equal, round and reactive pupils present Neck/C-Spine: COMMON NORMALS: full ROM, supple, no meningeal signs and no JVD Resp: COMMON NORMALS: normal respiratory effort, No retractions, No use of accessory muscles and clear to auscultation bilaterally AUSCULTATION: clear to auscultation bilaterally, no crackles, no rales, no rhonchi and no wheezes Cardio: COMMON NORMALS: no JVD, regular rate, regular rhythm, S1 normal heart sound present, S2 normal heart sound present, No gallops present (Cardio), No clicks present (Cardio), No murmurs present (Cardio), No rub (Cardio) and Peripheral pulses 2+ throughout RATE: regular rate RHYTHM: regular rhythm HEART SOUNDS: S1 normal heart sound present and S2 normal heart sound present PERIPHERAL PULSES: Peripheral pulses 2+ throughout GI: COMMON NORMALS: Normal to inspection, nondistended, normoactive bowel sounds present, Soft to palpation, No hepatosplenomegaly present and no masses AUSCULTATION: Yes normoactive bowel sounds PALPATION: Yes Soft to palpation, Yes Tenderness to palpation present (GI) (Mild diffuse), No Guarding due to palpation present (GI), No Rigid due to palpation and Yes No hepatosplenomegaly present RECTAL EXAM: deferred : COMMON NORMALS: Yes no CVA tenderness BLADDER/KIDNEY EXAM: Yes no CVA tenderness Back/Pelvis: COMMON NORMALS: no CVA tenderness Extremity: COMMON NORMALS: normal to inspection and full ROM Neuro: COMMON NORMALS: patient oriented x3, moves all extremities, no focal motor deficits and no sensory deficits noted SENSORIUM/ORIENTATION: Yes alert MENINGEAL SIGNS: Yes no meningeal signs Psych: COMMON NORMALS: mental status grossly normal, cooperative and speech normal SPEECH: Yes normal speech Skin: COMMON NORMALS: no rashes or lesions noted GENERAL SKIN EXAM: no rashes or lesions noted Course 2 Vital Signs: Vital signs: Vital Signs Temperature 98.3 F 12/18/23 13:49 Pulse Rate 87 12/18/23 13:49 Respiratory Rate 16 12/18/23 16:28 Blood Pressure 124/48 12/18/23 17:05 Pulse Oximetry 97 12/18/23 17:05 Oxygen Delivery Me thod Room Air 12/18/23 13:49 MDM - Nausea/Vomiting/Diarrhea Medical Decision Making Patient was seen here for the second time in a week for nausea and vomiting and abdominal pain. She is a diabetic, she has been on weekly Trulicity. Vitals were stable on arrival. She did have an appointment with primary care as scheduled on Wednesday, however states she was told to come for evaluation due to worsening of symptoms. Her workup a week ago was normal including negative labs and imaging. No new symptoms reported, just worsening. Physical exam overall unremarkable, however she did appear dry and had some diffuse abdominal pain to palpation. Her labs again were all normal, negative serum ketones and negative COVID this time. No imaging warranted at this time. She was given pain medication, nausea medication, and started on IV fluids. I do believe that her pain could be due to some gastroparesis, however she needs other evaluation with a potential upper endoscopy. Informed her to continue her follow-up on Wednesday to attempt to set this up, she states she does feel better and is ready to go home at this time. Will add Zofran to her medications, and give strict return precautions. Lab Data 12/18/23 16:20 12/18/23 16:20 Laboratory Results WBC 5.47 10^3/uL (3.29-11.43) 12/18/23 16:20 RBC 4.50 10^6/uL (3.85-5.65) 12/18/23 16:20 Hgb 13.60 g/dL (11.27-16.99) 12/18/23 16:20 Hct 39.9 % (36-47) 12/18/23 16:20 MCV 88.7 fl (85-98) 12/18/23 16:20 MCH 30.2 pg (27-33) 12/18/23 16:20 MCHC 34.1 g/dL (30-55) 12/18/23 16:20 RDW 12.1 % (12.1-15.1) 12/18/23 16:20 Plt Count 327 10^3/cmm (157-399) 12/18/23 16:20 MPV 9.0 fL (7.4-10.4) 12/18/23 16:20 Neut % (Auto) 59.3 % 12/18/23 16:20 Lymph % (Auto) 28.3 % 12/18/23 16:20 [place]cal[place] % (Auto) 8.4 % 12/18/23 16:20 Eos % (Auto) 3.3 % 12/18/23 16:20 Baso % (Auto) 0.5 % 12/18/23 16:20 Neut # (Auto) 3.24 10^3/uL (1.8-7.7) 12/18/23 16:20 Lymph # (Auto) 1.6 10^3/uL (0.8-4.8) 12/18/23 16:20 [place] # (Auto) 0.5 10^3/uL (0.2-0.9) 12/18/23 16:20 Eos # (Auto) 0.2 10^3/uL (0.0-0.8) 12/18/23 16:20 Baso # (Auto) 0.0 10^3/uL (0.0-0.1) 12/18/23 16:20 Nucleated RBC % (auto) 0 % 12/18/23 16:20 Nucleated RBCs # 0.0 /100WBC 12/18/23 16:20 Sodium 141 mmol/L (136-145) 12/18/23 16:20 Potassium 3.4 mmol/L (3.5-5.1) L 12/18/23 16:20 Chloride 104 mmol/L (98-107) 12/18/23 16:20 Carbon Dioxide 24 mmol/L (22-29) 12/18/23 16:20 Anion Gap 16.4 (5-19) 12/18/23 16:20 BUN 16 mg/dL (8-23) 12/18/23 16:20 Creatinine 0.6 mg/dL (0.5-0.9) 12/18/23 16:20 GFR Calculation 102.0 mL/min (90-130) 12/18/23 16:20 Glucose 99 mg/dL (65-115) 12/18/23 16:20 POC Glucose 120 mg/dL (70-110) H 12/18/23 15:18 Calculated Osmolality 293 mOsm/kg (285-295) 12/18/23 16:20 Calcium 9.7 mg/dL (8.5-10.5) 12/18/23 16:20 Total Bilirubin 0.3 mg/dL (0.15-1.2) 12/18/23 16:20 AST 11 U/L (0-32) 12/18/23 16:20 ALT 9 U/L (0-33) 12/18/23 16:20 Alkaline Phosphatase 102 U/L (35-105) 12/18/23 16:20 Total Protein 7.2 g/dL (6.6-8.7) 12/18/23 16:20 Albumin 4.5 g/dL (3.5-5.2) 12/18/23 16:20 Globulin 2.7 g/dL (1.3-4.6) 12/18/23 16:20 Lipase 14 U/L (13-60) 12/18/23 16:20 Urine Color Dark yellow (Yellow) A 12/18/23 15:32 Urine Appearance Cloudy (CLEAR) A 12/18/23 15:32 Urine pH 6.0 (5-7) 12/18/23 15:32 Ur Specific [place] 1.029 (1.005-1.030) 12/18/23 15:32 Urine Protein 1+ (Negative) A 12/18/23 15:32 Urine Glucose (UA) Negative (Normal) 12/18/23 15:32 Urine Ketones 1+ (Negative) H 12/18/23 15:32 Urine Blood Negative (Negative) 12/18/23 15:32 Urine Nitrate Negative (Negative) 12/18/23 15:32 Urine Bilirubin Negative (Negative) 12/18/23 15:32 Urine Urobilinogen 1.0 mg/dL (Negative) 12/18/23 15:32 Ur Leukocyte Esterase Negative (Negative) 12/18/23 15:32 Urine RBC None /hpf (0-2) 12/18/23 15:32 Urine WBC 5-10 /hpf (0-5) H 12/18/23 15:32 Ur Squamous Epith Cells 10-15 /hpf (0-5) H 12/18/23 15:32 Calcium Oxalate Crystal Rare /hpf 12/18/23 15:32 Amorphous Sediment Not Reportable 12/18/23 15:32 Urine Bacteria None /hpf (NONE) 12/18/23 15:32 Urine Mucus 3+ /hpf 12/18/23 15:32 Serum Ketones Negative (Negative) 12/18/23 16:20 SARS-CoV-2 Ag (Rapid) negative (Negative) 12/18/23 16:10 No radiology studies performed this visit Discharge Plan Discharge Patient Disposition: Home Clinical Impression: Gastroparesis Condition: Stable Prescriptions: New ondansetron HCl 4 mg tablet 4 mg PO Q8H Qty: 30 0RF No Action Prilosec OTC 20 mg tablet,delayed release (DR/EC) 20 mg PO DAILY Qty: 30 2RF dicyclomine 20 mg tablet 20 mg PO QID Qty: 30 0RF loratadine [Allergy Relief (loratadine)] 10 mg tablet 10 mg PO DAILY Advair Diskus 250-50 mcg/dose Blister With Device 1 inh INHALATION BID gabapentin 100 mg Capsule 100 mg PO TID Trulicity 1.5 mg/0.5 mL Pen Injector 1.5 mg SUBCUT Q7D fluoxetine 10 mg capsule 30 mg PO DAILY Qty: 90 1RF haloperidol 1 mg Tablet 1 mg PO 2100 30 Days Qty: 30 1RF trazodone 100 mg tablet 200 mg PO DAILY Qty: 60 1RF Discharge Orders: Discharge ED (Routine); Ordered 12/18/23 Ordered By: Mamadou Tamayo Discharge Diet: As Directed Discharge Activity: Increase activity as tolerated Patient Instructions: Acute Nausea and Vomiting (ED), Gastroparesis (ED) Activity Restrictions/Additional Instructions: Zofran as prescribed. Plenty of fluids at home. Please continue follow-up on Wednesday for reevaluation. Monitor blood sugars at home and continue the rest of your medications. Please return with any new or worsening. Coding Level of Care Code ED In Store Marketer for Chg Fwd Documented by User: Merrick Wright DO 12/20/23 05:48 HPI - Nausea/Vomiting/Diarrhea 2 General: Chief complaint: Nausea/Vomiting/Diarrhea Stated complaint: N/V Time Seen by Provider: 12/18/23 15:06 Related Data Home Medications Medication Instructions Recorded Confirmed loratadine 10 mg tablet (Allergy 10 mg PO DAILY 01/15/23 11/16/23 Relief (loratadine)) dulaglutide 1.5 mg/0.5 mL 1.5 mg SUBCUT Q7D 11/16/23 11/16/23 subcutaneous pen injector (Trulicity) fluticasone 250 mcg-salmeterol 50 1 inh inhalation BID 11/16/23 11/16/23 mcg/dose blistr powdr for inhalation (Advair Diskus) gabapentin 100 mg capsule 100 mg PO TID 11/16/23 11/16/23 Previous Rx's Medication Instructions Recorded fluoxetine 10 mg capsule 30 mg (3 x 10 mg) PO DAILY #90 caps 11/18/23 haloperidol 1 mg tablet 1 mg PO 2100 30 days #30 tabs 11/18/23 trazodone 100 mg tablet 200 mg (2 x 100 mg) PO DAILY #60 11/18/23 tabs dicyclomine 20 mg tablet 20 mg PO QID #30 tabs 12/13/23 omeprazole magnesium 20 mg 20 mg PO DAILY #30 tabs 12/13/23 tablet,delayed release (Prilosec OTC) ondansetron HCl 4 mg tablet 4 mg PO Q8H #30 tabs 12/18/23 Allergies Allergy/AdvReac Type Severity Reaction Status Date / Time Iodinated Contrast Media Allergy ALGY-Rash Verified 12/13/23 19:38 Penicillins Allergy ALGY-Swell Verified 12/13/23 19:38 Lip/Tongue/Throat PFSH ED 2 PFSH: Medical History Depression Psychiatric care Dysthymic disorder Course 2 Vital Signs: Vital signs: Vital Signs Temperature 98.3 F 12/18/23 13:49 Pulse Rate 87 12/18/23 13:49 Respiratory Rate 16 12/18/23 16:28 Blood Pressure 124/48 12/18/23 17:05 Pulse Oximetry 97 12/18/23 17:05 Oxygen Delivery Me thod Room Air 12/18/23 13:49 MDM - Nausea/Vomiting/Diarrhea Medical Decision Making Patient was seen here for the second time in a week for nausea and vomiting and abdominal pain. She is a diabetic, she has been on weekly Trulicity. Vitals were stable on arrival. She did have an appointment with primary care as scheduled on Wednesday, however states she was told to come for evaluation due to worsening of symptoms. Her workup a week ago was normal including negative labs and imaging. No new symptoms reported, just worsening. Physical exam overall unremarkable, however she did appear dry and had some diffuse abdominal pain to palpation. Her labs again were all normal, negative serum ketones and negative COVID this time. No imaging warranted at this time. She was given pain medication, nausea medication, and started on IV fluids. I do believe that her pain could be due to some gastroparesis, however she needs other evaluation with a potential upper endoscopy. Informed her to continue her follow-up on Wednesday to attempt to set this up, she states she does feel better and is ready to go home at this time. Will add Zofran to her medications, and give strict return precautions. Chart reviewed. Also reviewed labs and imaging from 12/13/2023 visit Labs and imaging from previous visit did not show any significant abnormality. Comment on previous labs and imaging in the ED HPI of today's visit is a mistranslation from dictation software. Lab Data 12/18/23 16:20 12/18/23 16:20 Laboratory Results WBC 5.47 10^3/uL (3.29-11.43) 12/18/23 16:20 RBC 4.50 10^6/uL (3.85-5.65) 12/18/23 16:20 Hgb 13.60 g/dL (11.27-16.99) 12/18/23 16:20 Hct 39.9 % (36-47) 12/18/23 16:20 MCV 88.7 fl (85-98) 12/18/23 16:20 MCH 30.2 pg (27-33) 12/18/23 16:20 MCHC 34.1 g/dL (30-55) 12/18/23 16:20 RDW 12.1 % (12.1-15.1) 12/18/23 16:20 Plt Count 327 10^3/cmm (157-399) 12/18/23 16:20 MPV 9.0 fL (7.4-10.4) 12/18/23 16:20 Neut % (Auto) 59.3 % 12/18/23 16:20 Lymph % (Auto) 28.3 % 12/18/23 16:20 [place] % (Auto) 8.4 % 12/18/23 16:20 Eos % (Auto) 3.3 % 12/18/23 16:20 Baso % (Auto) 0.5 % 12/18/23 16:20 Neut # (Auto) 3.24 10^3/uL (1.8-7.7) 12/18/23 16:20 Lymph # (Auto) 1.6 10^3/uL (0.8-4.8) 12/18/23 16:20 [place] # (Auto) 0.5 10^3/uL (0.2-0.9) 12/18/23 16:20 Eos # (Auto) 0.2 10^3/uL (0.0-0.8) 12/18/23 16:20 Baso # (Auto) 0.0 10^3/uL (0.0-0.1) 12/18/23 16:20 Nucleated RBC % (auto) 0 % 12/18/23 16:20 Nucleated RBCs # 0.0 /100WBC 12/18/23 16:20 Sodium 141 mmol/L (136-145) 12/18/23 16:20 Potassium 3.4 mmol/L (3.5-5.1) L 12/18/23 16:20 Chloride 104 mmol/L (98-107) 12/18/23 16:20 Carbon Dioxide 24 mmol/L (22-29) 12/18/23 16:20 Anion Gap 16.4 (5-19) 12/18/23 16:20 BUN 16 mg/dL (8-23) 12/18/23 16:20 Creatinine 0.6 mg/dL (0.5-0.9) 12/18/23 16:20 GFR Calculation 102.0 mL/min (90-130) 12/18/23 16:20 Glucose 99 mg/dL (65-115) 12/18/23 16:20 POC Glucose 120 mg/dL (70-110) H 12/18/23 15:18 Calculated Osmolality 293 mOsm/kg (285-295) 12/18/23 16:20 Calcium 9.7 mg/dL (8.5-10.5) 12/18/23 16:20 Total Bilirubin 0.3 mg/dL (0.15-1.2) 12/18/23 16:20 AST 11 U/L (0-32) 12/18/23 16:20 ALT 9 U/L (0-33) 12/18/23 16:20 Alkaline Phosphatase 102 U/L (35-105) 12/18/23 16:20 Total Protein 7.2 g/dL (6.6-8.7) 12/18/23 16:20 Albumin 4.5 g/dL (3.5-5.2) 12/18/23 16:20 Globulin 2.7 g/dL (1.3-4.6) 12/18/23 16:20 Lipase 14 U/L (13-60) 12/18/23 16:20 Urine Color Dark yellow (Yellow) A 12/18/23 15:32 Urine Appearance Cloudy (CLEAR) A 12/18/23 15:32 Urine pH 6.0 (5-7) 12/18/23 15:32 Ur Specific [place] 1.029 (1.005-1.030) 12/18/23 15:32 Urine Protein 1+ (Negative) A 12/18/23 15:32 Urine Glucose (UA) Negative (Normal) 12/18/23 15:32 Urine Ketones 1+ (Negative) H 12/18/23 15:32 Urine Blood Negative (Negative) 12/18/23 15:32 Urine Nitrate Negative (Negative) 12/18/23 15:32 Urine Bilirubin Negative (Negative) 12/18/23 15:32 Urine Urobilinogen 1.0 mg/dL (Negative) 12/18/23 15:32 Ur Leukocyte Esterase Negative (Negative) 12/18/23 15:32 Urine RBC None /hpf (0-2) 12/18/23 15:32 Urine WBC 5-10 /hpf (0-5) H 12/18/23 15:32 Ur Squamous Epith Cells 10-15 /hpf (0-5) H 12/18/23 15:32 Calcium Oxalate Crystal Rare /hpf 12/18/23 15:32 Amorphous Sediment Not Reportable 12/18/23 15:32 Urine Bacteria None /hpf (NONE) 12/18/23 15:32 Urine Mucus 3+ /hpf 12/18/23 15:32 Serum Ketones Negative (Negative) 12/18/23 16:20 SARS-CoV-2 Ag (Rapid) negative (Negative) 12/18/23 16:10 Discharge Plan Discharge Patient Disposition: Home Clinical Impression: Gastroparesis Condition: Stable Prescriptions: New ondansetron HCl 4 mg tablet 4 mg PO Q8H Qty: 30 0RF No Action Prilosec OTC 20 mg tablet,delayed release (DR/EC) 20 mg PO DAILY Qty: 30 2RF dicyclomine 20 mg tablet 20 mg PO QID Qty: 30 0RF loratadine [Allergy Relief (loratadine)] 10 mg tablet 10 mg PO DAILY Advair Diskus 250-50 mcg/dose Blister With Device 1 inh INHALATION BID gabapentin 100 mg Capsule 100 mg PO TID Trulicity 1.5 mg/0.5 mL Pen Injector 1.5 mg SUBCUT Q7D fluoxetine 10 mg capsule 30 mg PO DAILY Qty: 90 1RF haloperidol 1 mg Tablet 1 mg PO 2100 30 Days Qty: 30 1RF trazodone 100 mg tablet 200 mg PO DAILY Qty: 60 1RF Discharge Orders: Discharge ED (Routine); Ordered 12/18/23 Ordered By: Mamadou Tamayo Discharge Diet: As Directed Discharge Activity: Increase activity as tolerated Patient Instructions: Acute Nausea and Vomiting (ED), Gastroparesis (ED) Activity Restrictions/Additional Instructions: Zofran as prescribed. Plenty of fluids at home. Please continue follow-up on Wednesday for reevaluation. Monitor blood sugars at home and continue the rest of your medications. Please return with any new or worsening. Coding Level of Care Code ED In Store Marketer for Daren Henry
== END 2023-12-18 17:20 | disposition home or self-care (01) ==
PROVIDERS: Emergency Provider Physician Assistant
DX: K31.84 Gastroparesis (principal); Z79.85 Long-term (current) use of injectable non-insulin antidiabetic drugs; Z11.52 Encounter for screening for COVID-19
CPT/HCPCS: 36416; 80053; 81003; 81015; 82009; 82962; 83690; 85025; 87426; 96374; 96375; 99284; J2270; J2405; J7030

== ENCOUNTER 2024-05-09 09:36 | Day surgery (SDC) | payer MEDICAID, SELFPAY ==
[2024-05-09 10:03] VITALS: BP 127/79; PULSE 92; RESP 16; TEMP 36.5; O2SAT 98; BMI 22.6
[2024-05-09] MEDS: sodium chloride 0.9% 500 ML 15 ML IV (10:22)
--- NOTE | 2024-05-09 10:38 | W.PM.OPSUD ---
Surgery/Procedure H&P Update DATE OF PROCEDURE: May 09, 2024 DATE H&P PERFORMED: 04/14/24 PLANNED PROCEDURE: Operation Date: 05/09/24 11:00 Proposed Procedures p EGD 91460, 70214, G0105, R12, Z12.11(Not Applicable) - Raghu Colon MD s Colonoscopy(Not Applicable) - Raghu Colon MD
[2024-05-09 11:01] LABS: Glucose Point of Care 111 mg/dL (70-110)
--- NOTE | 2024-05-09 11:31 | ANES.PREANE2 ---
Pre-Anesthetic Assessment Height/Weight: Height 5 ft 6 in Weight 140 lb Temp Pulse Resp BP Pulse Ox O2 Del Method 97.7 F 92 16 127/79 98 Room Air 05/09/24 10:03 05/09/24 10:03 05/09/24 10:03 05/09/24 10:03 05/09/24 10:03 05/09/24 10:03 Preop Diagnosis: GERD, screening colonoscopy Operation Date: 05/09/24 11:00 Proposed Procedures p EGD 16280, 67073, G0105, R12, Z12.11(Not Applicable) - Raghu Colon MD s Colonoscopy(Not Applicable) - Raghu Colon MD Was Beta Jelani taken within 24 hours: N/A Was Clonidine taken within 24 hours: N/A Last intake: Intake Last Liquid Date 05/08/24 Last Liquid Time 20:00 Last Solid Date 05/07/24 Last Solid Time 20:00 Social Tobacco and No alcohol Exam alert, oriented x 3, clear to auscultation bilaterally and regular rate & rhythm Airway Submandibular: within normal limits Cervical ROM: within normal limits Mallampati: Class II Comments: Comments: Edentulous Anesthetic Plan ASA status: 3 Anesthesia: General Other: No prior issues with anesthesia Completed bowel prep History of GERD on Protonix Current smoker Hypertension on lisinopril Patient takes haloperidol at bedtime On Trulicity subcu and insulin. Preop BS 111 Plan for MAC anesthetic Medications/Allergies Home Medications Medication Instructions Recorded Confirmed Last Taken Type dulaglutide 1.5 mg/0.5 mL 1.5 mg SUBCUT Q7D 11/16/23 04/17/24 Unknown History subcutaneous pen injector (Trulicity) gabapentin 100 mg capsule 100 mg PO TID 11/16/23 05/09/24 Unknown History fluoxetine 10 mg capsule 30 mg (3 x 10 mg) PO DAILY #90 caps 02/15/24 05/09/24 Unknown Rx haloperidol 5 mg tablet 5 mg PO .qhs 30 days #30 tabs 02/15/24 05/09/24 Unknown Rx trazodone 100 mg tablet 200 mg (2 x 100 mg) PO DAILY #60 02/15/24 05/09/24 Unknown Rx tabs pantoprazole 40 mg tablet,delayed 40 mg PO BID 6 weeks #84 tabs 04/14/24 05/09/24 Unknown Rx release (Protonix) cetirizine 10 mg tablet 10 mg PO DAILY 05/09/24 05/09/24 Unknown History haloperidol 1 mg tablet 2 mg PO BEDTIME 05/09/24 05/09/24 Unknown History lisinopril 5 mg tablet 5 mg PO DAILY 05/09/24 05/09/24 Unknown History metoclopramide HCl 10 mg tablet 10 mg PO QID 05/09/24 05/09/24 Unknown History oxybutynin chloride 10 mg 10 mg PO DAILY 05/09/24 05/09/24 Unknown History tablet,extended release 24 hr Allergies Allergy/AdvReac Type Severity Reaction Status Date / Time Iodinated Contrast Media Allergy ALGY-Rash Verified 05/09/24 09:56 Penicillins Allergy ALGY-Swell Verified 05/09/24 09:56 Lip/Tongue/Throat Current Medications Generic Name Dose Route Start Last Admin Trade Name Freq PRN Reason Stop Dose Admin Sodium Chloride 500 mls @ 15 mls/hr 05/09/24 09:48 05/09/24 10:22 Sodium Chloride 0.9% IV 05/10/24 09:47 15 mls/hr .Q24H PRN Administration COLONOSCOPY FLUIDS PFSH Anesthesia Medical History Depression Psychiatric care Dysthymic disorder Social History Smoking and tobacco/nicotine status: current every day tobacco/nicotine user (04/22 PPD) Data Anesthesia Cardiac Studies: No Data to Display
[2024-05-09 11:49] VITALS: BP 116/69; PULSE 67; RESP 12; TEMP 36.7; O2SAT 97
[2024-05-09 12:15] VITALS: BP 116/69; PULSE 73; RESP 17; O2SAT 100
--- NOTE | 2024-05-09 12:20 | ANE.PACU2 ---
Inpatient post-anesthesia follow up: Airway intact: Yes Vital signs: Temperature 98.0 F Pulse Rate 73 Respiratory Rate 17 Blood Pressure 116/69 Pulse Oximetry 100 Oxygen Delivery Me thod Room Air Oxygen Flow Rate Fraction of Inspir ed Oxygen Hydration adequate: Yes Nausea and vomiting: No Pain level: 1 Mental status: Baseline
== END 2024-05-09 12:20 | disposition home or self-care (01) ==
PROVIDERS: PCP Family Medicine; Visit Provider Student in an Organized Health Care Education/Training Program
PROC: 0DJ08ZZ Inspection of Upper Intestinal Tract, Via Natural or Artificial Opening Endoscopic (ICD-10-PCS; principal; 2024-05-09 11:00)
PROC: 0DJD8ZZ Inspection of Lower Intestinal Tract, Via Natural or Artificial Opening Endoscopic (ICD-10-PCS; CPT 45378; 2024-05-09 11:00)
DX: Z12.11 Encounter for screening for malignant neoplasm of colon (principal); R12 Heartburn; K57.30 Diverticulosis of large intestine without perforation or abscess without bleeding; K29.70 Gastritis, unspecified, without bleeding; K21.9 Gastro-esophageal reflux disease without esophagitis; F17.200 Nicotine dependence, unspecified, uncomplicated; I10 Essential (primary) hypertension
CPT/HCPCS: 36416; 43239; 45378; 82962; 88305; J2704; J7040

== ENCOUNTER 2024-06-16 14:43 | Emergency (ER) | payer MEDICAID, SELFPAY ==
[2024-06-16 14:49] VITALS: BP 147/78; PULSE 92; RESP 18; TEMP 37.1; O2SAT 97; BMI 16.6
--- NOTE | 2024-06-16 16:36 | W.ED.NECK ---
HPI - Neck Pain/Injury General: Chief Complaint: Neck Pain/Injury Stated Complaint: Neck into shoulder pain x1week Time Seen by Provider: 06/16/24 16:29 Source: patient Mode of arrival: EMS Limitations: no limitations History of Present Illness: Patient is a 59-year-old female presents to ED today with complaint of left-sided neck pain over the past week or so. She has not had any injury or trauma. She feels like the left neck pain radiates down into the top and posterior aspect of her shoulder. She feels like pain is worse with range of motion of the left shoulder and range of motion of her neck. She does not seem to have any cervical discomfort. Denies fevers. No headache. Patient arrives via EMS. MD complaint: neck pain Onset (ago): week(s) Place: home Radiation: left lateral and left shoulder Severity: severe Duration: constant Relieving factors: none Exacerbating factors: movement of extremity and movement of neck Associated symptoms: Reports no associated symptoms; Denies headache(s) Treatments prior to arrival: ibuprofen Related Data Home Medications ?Medication ?Instructions ?Recorded ?Confirmed dulaglutide 1.5 mg/0.5 mL 1.5 mg SUBCUT Q7D 11/16/23 04/17/24 [facility] gabapentin 100 mg capsule 100 mg PO TID 11/16/23 05/09/24 cetirizine 10 mg tablet 10 mg PO DAILY 05/09/24 05/09/24 haloperidol 1 mg tablet 2 mg PO BEDTIME 05/09/24 05/09/24 lisinopril 5 mg tablet 5 mg PO DAILY 05/09/24 05/09/24 metoclopramide HCl 10 mg tablet 10 mg PO QID 05/09/24 05/09/24 oxybutynin chloride 10 mg 10 mg PO DAILY 05/09/24 05/09/24 tablet,extended release 24 hr Previous Rx's ?Medication ?Instructions ?Recorded fluoxetine 10 mg capsule 30 mg (3 x 10 mg) PO DAILY #90 caps 02/15/24 haloperidol 5 mg tablet 5 mg PO .qhs 30 days #30 tabs 02/15/24 trazodone 100 mg tablet 200 mg (2 x 100 mg) PO DAILY #60 02/15/24 tabs pantoprazole 40 mg tablet,delayed 40 mg PO BID 6 weeks #84 tabs 04/14/24 release (Protonix) cyclobenzaprine 10 mg tablet 10 mg PO TID #14 tabs 06/16/24 methylprednisolone 4 mg tablets in See Rx Instructions PO .COMPLEX 06/16/24 a dose pack (Medrol (Naresh)) #21 ea naproxen 500 mg tablet 500 mg PO BID PRN pain #20 tabs 06/16/24 Allergies Allergy/AdvReac Type Severity Reaction Status Date / Time Iodinated Contrast Media Allergy ALGY-Rash Verified 05/09/24 09:56 Penicillins Allergy ALGY-Swell Verified 05/09/24 09:56 Lip/Tongue/Throat Review of Systems Const: Denies: fever(s), chills, body aches, fatigue or malaise Card: Denies: chest pain Resp: Denies: dyspnea Musc: Reports: neck pain and joint pain (L shoulder); Denies: back pain, extremity pain, extremity swelling, joint swelling, joint redness, joint warmth or joint stiffness Neuro: Denies: headache(s), numbness in extremities, weakness in extremities or sensory changes PFSH ED PFSH: Medical History Depression Psychiatric care Dysthymic disorder Social History Smoking and tobacco/nicotine status: current every day tobacco/nicotine user (04/22 PPD) Physical Exam Const: COMMON NORMALS: no acute distress, patient oriented x3, no limitations, alert and well nourished GENERAL APPEARANCE: cooperative ORIENTATION/CONSCIOUSNESS: Yes awake, Yes oriented to person, Yes oriented to place and Yes oriented to time HENMT: COMMON NORMALS: normocephalic and atraumatic HEAD & SCALP: normal to inspection, normocephalic and atraumatic FACE & SINUS: normal facial exam Eye: COMMON NORMALS: Equal, round and reactive pupils present and EOMs intact bilaterally GENERAL EYE: appearance normal, both eyes and all related structures and normal light reflex PUPIL: Yes Equal, round and reactive pupils present DIRECT OPHTHALMOSCOPY: Yes normal light reflex Neck/C-Spine: COMMON NORMALS: full ROM, no lymphadenopathy, supple, no meningeal signs, no JVD, Thyroid normal and No carotid bruits GENERAL: Yes normal visual inspection THYROID: Thyroid normal CERVICAL SPINE: Yes pain with cervical ROM, No step off deformity, Yes Paracervical muscle tenderness left and Yes Trapezius muscle tenderness left Resp: COMMON NORMALS: normal respiratory effort and clear to auscultation bilaterally AUSCULTATION: clear to auscultation bilaterally Cardio: COMMON NORMALS: no JVD, regular rate and regular rhythm RATE: regular rate RHYTHM: regular rhythm Extremity: COMMON NORMALS: normal to inspection and capillary refill normal GENERAL: Yes normal exam except as noted LEFT UPPER EXTREMITY: Yes shoulder joint (TTP L posterior shoulder; pain with ROM) Left shoulder joint: Yes neurovascular exam (normal) Neuro: COMMON NORMALS: patient oriented x3, CN's II-XII intact bilaterally, moves all extremities, no focal motor deficits and no sensory deficits noted SENSORIUM/ORIENTATION: Yes alert, Yes oriented to person, Yes oriented to place and Yes oriented to time MENINGEAL SIGNS: Yes no meningeal signs Skin: COMMON NORMALS: no rashes or lesions noted GENERAL SKIN EXAM: no rashes or lesions noted Course Vital Signs: Vital signs: Vital Signs Temperature 98.7 F 06/16/24 14:49 Pulse Rate 92 06/16/24 14:49 Respiratory Rate 18 06/16/24 14:49 Blood Pressure 147/78 06/16/24 14:49 Pulse Oximetry 97 06/16/24 14:49 Oxygen Delivery Me thod Room Air 06/16/24 14:49 MDM - Neck Pain/Injury Medical Decision Making Patient here for left-sided neck pain radiating into her left shoulder over the past week or so. She is not complaining of numbness, tingling, loss of sensation to the upper extremity. She has no color or temperature changes to the arm. She does not complain of any midline cervical tenderness. No fevers or headache. At this time I would have a low suspicion for any type of emergent etiology including meningitis, intracranial hemorrhage, discitis/cervical epidural abscess, central cord compression, etc. Patient was treated with IM anti-inflammatories, steroids, muscle relaxers here. Will send home with similar medications. Return ED precautions discussed. Differential Diagnosis Likely disc disorder of cervical region, cervical radiculopathy, torticollis and strain of neck muscle Medical Records I reviewed the patient's medical records. No radiology studies performed this visit Discharge Plan Discharge Patient Disposition: Home Clinical Impression: Neck pain on left side Condition: Stable Prescriptions: New cyclobenzaprine 10 mg tablet 10 mg PO TID Qty: 14 0RF methylprednisolone [Medrol (Naresh)] 4 mg tablets,dose pack See Rx Instructions .ROUTE .COMPLEX Qty: 21 0RF Rx Instructions: orally per package directions naproxen 500 mg tablet 500 mg PO BID PRN (Reason: pain) Qty: 20 0RF No Action pantoprazole [Protonix] 40 mg tablet,delayed release (DR/EC) 40 mg PO BID 42 Days Qty: 84 1RF fluoxetine 10 mg capsule 30 mg PO DAILY Qty: 90 1RF haloperidol 5 mg tablet 5 mg PO .qhs 30 Days Qty: 30 3RF trazodone 100 mg tablet 200 mg PO DAILY Qty: 60 1RF cetirizine 10 mg tablet 10 mg PO DAILY oxybutynin chloride 10 mg tablet extended release 24hr 10 mg PO DAILY haloperidol 1 mg tablet 2 mg PO BEDTIME lisinopril 5 mg tablet 5 mg PO DAILY metoclopramide HCl 10 mg tablet 10 mg PO QID gabapentin 100 mg Capsule 100 mg PO TID Trulicity 1.5 mg/0.5 mL Pen Injector 1.5 mg SUBCUT Q7D Discharge Orders: Discharge ED (Routine); Ordered 06/16/24 Ordered By: Jia Rivero Patient Instructions: Cervical Strain (DC), Neck Pain (ED), Acute Neck Pain (ED) Activity Restrictions/Additional Instructions: As we discussed, you may try anti-inflammatories, muscle relaxers, and steroids all prescribed to you today for relief of your neck pain. You may also attempt ice and heat. I would like you to follow-up with your primary care provider next week if symptoms are not improving. You need to return to the emergency department at anytime for worsening neck pain, severe headache, severe neck stiffness, fevers, generally feeling worse or unwell, or any other concerns you may have. I hope you begin to feel better soon. Print Language: Lao Coding Level of Care Code ED Rental Sales Representative for Daren Henry
[2024-06-16] MEDS: ketorolac 60 mg/2 mL INJ IM (16:46)
[2024-06-16] MEDS: dexamethasone 10 mg/mL INJ 8 MG IM (16:46)
[2024-06-16] MEDS: orphenadrine 30 mg/mL Inj 2 mL 60 MG IM (16:47)
== END 2024-06-16 17:15 | disposition home or self-care (01) ==
PROVIDERS: Emergency Provider Physician Assistant
DX: M54.2 Cervicalgia (principal); Z79.85 Long-term (current) use of injectable non-insulin antidiabetic drugs; F17.210 Nicotine dependence, cigarettes, uncomplicated
CPT/HCPCS: 96372; 99284; J1100; J1885; J2360

== ENCOUNTER 2024-10-28 12:19 | Emergency (ER) | payer MEDICAID, SELFPAY ==
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
[2024-10-28 12:24] VITALS: BP 117/78; PULSE 107; RESP 15; TEMP 36.7; O2SAT 97; BMI 17.7
[2024-10-28 12:32] VITALS: PULSE 113; RESP 18; O2SAT 99; BMI 17.7
--- OUTSIDE RECORDS SUMMARY | 2024-10-28 12:35 | XMS_ITS | Clinical Summary ---
Author Organization [facility] Address [address] [place] [address] Care Team Providers Care Dumpman Name Role Phone Mario Allan DO Primary Care Provider [phone] Allergies Active Allergy Reactions Criticality Noted Date Comments Doxycycline Hyclate Nausea and Vomiting Low 017 Dye Hives High 05/10/2015 Iodinated Contrast Media Nausea and Vomiting Low Penicillins Hives,Fever High 11/06/2008 Medications Nebulizer Accessories Kit Nebulizer Tubing. 3 Each 1 022 Active albuterol (PROVENTIL,VENTOL IN) 2.5 mg /3 mL (0.083 %) Solution for NebulizationIndic ations:Stage 1 mild COPD by GOLD classification ([facility]) Take 3 mL (2.5 mg) by inhalation every 6 hours as needed for Shortness of Breath. 360 mL 10 023 Active Lancing Device with Lancets Kit Check blood sugar once daily dx e11.9 1 Each 023 Active Blood-Glucose Meter (OneTouch Verio Flex meter)Indications :Type 2 diabetes mellitus without complication, without long-term current use of insulin ([facility]) To check blood sugar 3 times daily for diabetes E11.9 1 Each 023 Active albuterol sulfate HFA 90 mcg/actuation aerosol inhalerIndication s:Stage 1 mild COPD by GOLD classification ([facility]) Take 2 Puffs by inhalation every 6 hours as needed for Shortness of Breath. 8.5 Gram 3 023 Active Additional Information Patient not taking.Reported on 07/06/2024 fluticasone propion-salmetero L (Advair Diskus) 250-50 mcg/dose disk inhalerIndication s:Stage 1 mild COPD by GOLD classification ([facility]) Take 1 Puff by inhalation 2 times daily. 1 Each 3 Active hydrOXYzine HCL (ATARAX) 10 mg tablet TAKE 1 TABLET BY MOUTH TWICE A DAY FOR ANXIETY 60 Tablet 2 Active fluticasone propionate (FLONASE) 50 mcg/spray [place], Suspension nasal inhalerIndication s:Environmental allergies,Acute maxillary sinusitis, recurrence not specified Administer 2 Sprays in each nostril daily. 16 Gram 2 Active Additional Information Patient not taking.Reported on 12/01/2023 lisinopriL (PRINIVIL) 5 mg tabletIndications :Benign hypertension,Type 2 diabetes mellitus with diabetic neuropathy, without long-term current use of insulin ([facility]) Take 1 Tablet (5 mg) by mouth daily. 30 Tablet 3 Active lancets (Revolution FoodsTouch Delica Plus Lancet) 33 gauge To check blood sugar 3 times daily for diabetes E11.9 100 Each Active blood sugar diagnostic (AppEnsureuch Verio test strips) Strip TO TEST BLOOD SUGAR 3 TIMES A DAY FOR DIABETES E11.9 100 Strip Active dicyclomine (BENTYL) 20 mg tablet TAKE 1 TABLET BY MOUTH EVERY 4 HOURS NEEDED FOR ABDOMINAL CRAMPS OR ABDOMINAL DISCOMFORT Active gabapentin (NEURONTIN) 100 mg capsuleIndication s:Neuropathy Take 1 Capsule (100 mg) by mouth 3 times daily. 90 Capsule 3 024 Active metoclopramide HCl (REGLAN) 10 mg tabletIndications :Diabetic gastroparesis ([facility]) Take 1 Tablet (10 mg) by mouth 4 times daily before meals and at bedtime. 120 Tablet 2 024 Active HYDROcodone-aceta minophen (NORCO) 5-325 mg tabletIndications :Posterior neck pain,Degeneration of intervertebral disc of lumbar region with discogenic back pain Take 1 Tablet by mouth every 8 hours as needed for Pain, Moderate. Max Daily Amount: 3 Tablets 12 Tablet 025 Active zolpidem (AMBIEN) 5 mg tabletIndications :Primary insomnia Take 1 Tablet (5 mg) by mouth nightly as needed for Insomnia. 30 Tablet 2 025 Active Trulicity 1.5 mg/0.5 mL injection Inject 0.5 mL (1.5 mg) by subcutaneous injection every 7 days. 2 mL 3 025 Active Gentle Laxative, bisacodyl, 5 mg Delayed Release tablet Take 1 Tablet by mouth daily. 024 Active lidocaine (LIDODERM) 5 % Adhesive Patch, MedicatedIndicati ons:Neck pain APPLY 1 PATCH EVERY 24 HOURS NEEDED FOR PAIN. APPLY TO INTACT SKIN. REMOVE AFTER 24 HOURS 025 Active pantoprazole (PROTONIX) 40 mg Tablet, Delayed Release (E.C.) TAKE 1 TABLET BY MOUTH TWICE A DAY FOR 6 WEEKS 025 Active traZODone (DESYREL) 100 mg tablet 2 tabs PO at bedtime. 60 Tablet 5 025 Active FLUoxetine (PROzac) 10 mg capsuleIndication s:Major depressive disorder, recurrent severe without psychotic features (CMS/HCC) TAKE 3 CAPSULES BY MOUTH DAILY 90 Capsule 1 025 Active cetirizine (ZyrTEC) 10 mg tabletIndications :Environmental allergies Take 1 Tablet (10 mg) by mouth daily. 90 Tablet 025 Active Stool Softener-Stimulan t Laxat 8.6-50 mg tabletIndications :Chronic idiopathic constipation Take 1 Tablet by mouth 2 times daily. 60 Tablet 5 025 Active haloperidoL (HALDOL) 2 mg tabletIndications :Schizophrenia, unspecified type (CMS/HCC) Take 1 Tablet (2 mg) by mouth daily at bedtime. 30 Tablet 2 025 Active celecoxib (CeleBREX) 400 mg capsuleIndication s:Neck pain Take 1 Capsule (400 mg) by mouth daily. FOR ARTHRITIS 30 Capsule 025 Active haloperidoL (HALDOL) 2 mg tabletIndications :Schizophrenia, unspecified type (CMS/HCC) Take 1 Tablet (2 mg) by mouth daily at bedtime. 30 Tablet 2 025 2024 Discontinued celecoxib (CeleBREX) 400 mg capsuleIndication s:Neck pain Take 1 Capsule (400 mg) by mouth daily. FOR ARTHRITIS 30 Capsule 2 025 2024 Discontinued Active Problems Problem Noted Date Diagnosed Date Esophageal dysphagia 07/06/2024 PUD (peptic ulcer disease) 10/11/2023 Acute diverticulitis 10/11/2023 Lung nodule 12/29/2021 Hx of hyperlipidemia 12/25/2021 Chronic right-sided low back pain without sciati ca 11/05/2021 DDD (degenerative disc disease), lumbar 11/06/19 Renal calculus, bilateral 11/05/2021 Chronic GERD 08/27/2021 Hypertrophic scar of skin 03/26/2021 History of adenomatous polyp of colon-removed on C-scope March 2020, needs repeat in 5 years 07/17/2020 Type 2 diabetes mellitus wit h diabetic neuropathy, without long-term current use of insulin 10/02/2019 Benign hypertension 03/21/2019 Intractable generalized abdominal pain 9 Intractable nausea and vomiting 01/27/2019 Social anxiety disorder 08/02/2018 Posttraumatic stress disorder, chronic/delayed o nset 08/02/2018 Major depressive disorder, r ecurrent severe without psychotic features 08/02/2018 Neck pain 12/13/2017 COPD, moderate 08/23/2017 Primary insomnia 07/29/2017 Medical clearance for psychiatric admission 10/18 JEROME (obstructive sleep apnea) 11/12/2016 Tobacco abuse 11/09/2016 Resolved Problems Problem Noted Date Diagnosed Date Resolved Date Stage 1 mild COPD by GOLD classification 12/29/2021 04/30/2022 Suicidal ideation 12/25/2021 07/06/2024 Hypokalemia 07/22/2020 07/06/2024 Orthostatic syncope 07/22/2020 04/30/19 23 Acute diarrhea 07/22/2020 02/26/2021 COPD with exacerbation 01/27/201904/30 Anxiety state 09/07/2017 04/30/2022 Acute seasonal allergic rhin itis due to pollen 07/29/2017 02/13/2020 Moderate episode of recurren t major depressive disorder 07/29/2017 04/30/2022 Overweight (BMI 25.0-29.9) 02/22/2017 0 07/06/2024 Screening for colon cancer 11/12/2016 0 12/16/2016 Uncomplicated asthma 11/12/2016 018 Prediabetes 11/12/2016 04/30/2022 Abscess of axilla, left 01/18 Viral URI 04/27/2019 Elevated blood pressure read ing without diagnosis of hypertension 02/26/2021 Encounters Date Type Department Care Team Description 10/08/[address] [address] Dafne Jerry, CURRICULUM ADVISORY TEACHER Schizophrenia, unspecified type ([facility]); Neck pain 10/04/2024 External Device Data [facility] ABSTRACTION Provider, Abstract 09/26/2024 External Device Data [facility] ABSTRACTION Provider, Abstract 09/26/2024 External Device Data [facility] ABSTRACTION Provider, Abstract 09/24/[address] [address] Mario Allan DO Major depressive disorder, recurrent severe without psychotic features ([facility]) 09/17/[address] [address] Jacki Galindo MD Chronic idiopathic constipation 09/15/[address] [address] Ting Light, CURRICULUM ADVISORY TEACHER Environmental allergies 09/12/2024 External Device Data [facility] ABSTRACTION Provider, Abstract 08/28/[address] [address] Mario Allan DO Major depressive disorder, recurrent severe without psychotic features ([facility]) 08/08/2024 External Device Data [facility] ABSTRACTION Provider, Abstract from Last 3 Months Immunizations Immunization Administration Dates Next Due ([id number])(ALL AGES) VACCINI A (SMALLPOX) VACCINE, PERCUTANEOUS 1965 (ADACEL/BOOSTRIX)(10 YR UP) TDAP VACCINE, 0.5ML, IM 09/28/2017 (PNEUMOVAX 23)(50 YRS UP) PN EUMOCOCCAL POLYSACCHARIDE (PPV23) 0.5 ML, IM 10/07/2018 (PREVNAR 13)(6 WKS UP) PNEUM OCOCCAL CONJUGATE (PCV13) 0.5 ML, IM 02/13/2020 (SHINGRIX)(50 YRS UP) ZOSTER VACCINE RECOMBINANT, 0.5 ML, IM 04/28/2021,09/25/2020 (TDVAX)(7 YRS UP) TETANUS AN D DIPHTHERIA TOXOIDS, ADSORBED (2 LF OF TETANUS TOXOID AND 2 LF OF DIPHTHERIA TOXOID), 0.5ML (PF), IM 05/20/1988,07/15/1970 (TENIVAC)(7 YRS UP) TETANUS AND DIPHTHERIA TOXOIDS, ADSORBED (5 LF OF TETANUS TOXOID AND 2 LF OF DIPHTHERIA TOXOID), 0.5ML (PF), IM 09/29/2021 Diptheria, Tetanus Toxoids, And Whole Cell Pertussis Vaccine (DTP), for intramuscular use 08/26/1964,1963,1963,06/05 INFLUENZA VACCINE QUADRIVALE NT 3 YR UP PF IM 01/07/2018,12/28/2016 INFLUENZA VACCINE QUADRIVALE NT 6 MOS UP PF IM 02/26/2023,01/19/2022,02/26/2021,02/12 Influenza Seasonal Unspecifi ed Formulation IM 01/03/2024,01/23/2019 Measles Vaccine SQ 11/10/1976 Mumps Vaccine SQ 01/21/1978 Poliovirus Vaccine Live Oral 12/10/1977, 01/05/1977,11/10/1976,02/08,08/26/1964,1963,1963 ,1963 Rubella Vaccine SQ 11/10/1976,07/03/1970 Family History Medical History Relation Name Comments Diabetes Maternal Grandfather Diabetes Paternal Grandfather Cancer Sister lung Colon Cancer Neg Hx Relation Name Status Comments Maternal Grandfather Paternal Grandfather Sister Social History Tobacco Use Types Packs/Day Years Used Date Smoking Tobacco: Every Day Cigarettes 1 45.5 Started: 1979 Passive Smoke Exposure: Current Smokeless Tobacco: Never Tobacco Cessation:Ready to Q uit: No; Counseling Given: Yes Comments:1 pack lasts 3 days. Alcohol Use Standard Drinks/Week Comments No 0 (1 standard drink = 0.6 oz pur e alcohol) Feeling Safe Answer Date Recorded Within the last year, have y ou been afraid of your partner or ex-partner? No 12/25/2021 Within the last year, have y ou been humiliated or emotionally abused in other ways by your partner or ex-partner? No Within the last year, have y ou been kicked, hit, slapped, or otherwise physically hurt by your partner or ex-partner? No 12/25/2021 Within the last year, have y ou been raped or forced to have any kind of sexual activity by your partner or ex-partner? No 12/25/2021 Social Connections Answer Date Recorded In a typical week, how many times do you talk on the telephone with family, friends, or neighbors? More than three times a week 12/25/2021 How often do you get togethe r with friends or relatives? More than three times a week 12/25/2021 How often do you attend chur or christianity services? Never 12/25/2021 Do you belong to any clubs o r organizations such as alevism groups, unions, fraternal or athletic groups, or school groups? No 12/25/2021 How often do you attend meet ings of the clubs or organizations you belong to? Never 12/25/2021 Are you , , di vorced, , never , or living with a partner? 12/25/2021 Financial Resource Strain Answer Date R ecorded How hard is it for you to pa y for the very basics like food, housing, medical care, and heating? Not hard at all 12/25/2021 Food Insecurity Answer Date Recorded In the past 12 months, have you worried that your food would run out before you had money to buy more? Never true 12/25/2021 In the past 12 months, did y ou run out of food and didn't have money to buy more? Never true 12/25/2021 Transportation Needs Answer Date Record ed In the past 12 months, has l ack of transportation kept you from medical appointments or from getting medications? No 11/2021 In the past 12 months, has l ack of transportation kept you from meetings, work, or from getting things needed for daily living? No 12/25/2021 Housing Stability Answer Date Recorded In the last 12 months, was t here a time when you were not able to pay the mortgage or rent on time? No 12/25/2021 Number of Times Moved in the Last Year Not on fi le 12/25/2021 (RETIRED) In the last 12 wed th, was there a time when you did not have a steady place to sleep or slept in a long-term (including now)? No 12/25/2021 Feeling Safe Answer Date Recorded Are you in a relationship wi th someone who hurts you emotionally and/or physically? No 10/11/2023 Food Insecurity Answer Date Recorded Social/Environmental Concerns No concerns Transportation Needs Answer Date Record ed Social/Environmental Concerns No concerns Housing Stability Answer Date Recorded Social/Environmental Concerns No concerns Utility Needs Answer Date Recorded Social/Environmental Concerns No concerns Comments No Sex and Gender Information Value Date Recorded Sex Assigned at Not on file Legal Sex Female 3:48 AM SERVICE COORDINATOR Gender Identity Not on file Sexual Orientation Not on file Last Filed Vital Signs Vital Sign Reading Time Taken Comments Blood Pressure 130/82 07/06/2024 10:06 AM CDT Pulse 114 07/06/2024 10:06 AM CDT Temperature 36.9 C (98.5 F) 07/06/2024 10:06 AM CDT Respiratory Rate 22 07/06/2024 10:06 AM CDT Oxygen Saturation 98% 07/06/2024 10:06 AM CDT Inhaled Oxygen Concentration - - Weight 57.9 kg (127 lb 9.6 oz) 07/06/2024 10:06 AM CDT Height 167.6 cm (5' 6 ) 07/06/2024 10:06 AM CDT Body Mass Index 20.6 07/06/2024 10:06 AM CDT Plan of Treatment Health Maintenance Due Date Last Done Comments Preventative Visit-Managed Medicaid 1982 FIT-DNA Q 3 years 01/18/2008 FIT/FOBT Q 1 year 01/18/2008 Flex Sig/CT Colonography Q 5 years 01/18/2008 Lung Cancer Screening 2013 BREAST CANCER SCREENING 07/09/2021 07/09/2020, 07/09 DIABETES ANNUAL RETINAL EXAM 12/18/2021 12/18/2020 RSV VACCINE (60+ or ) (1 - Risk 60-74 years 1-dose series) 2023 LDL CHOLESTEROL ANNUAL 05/07/2023 3, 02/12/2021, 09/25/2019, Additional history exists DIABETES HBA1C Q 6 MONTHS 08/27/20232022, 10/14/2022, 05/07/2022, Additional history exists DIABETES MICROALBUMIN ANNUAL SCREEN 02/27/2024 02/26/2023 DIABETES: A1C (Auto Order) 02/27/202402/26, 10/14/2022, 05/07/2022, Additional history exists INFLUENZA VACCINE (#1) 2024 4, 02/26/2023, 01/19/2022, Additional history exists COLORECTAL SCREENING 03/21/2025 03/21/2020, 03/21/2020, 12/03/2016 Colorectal Cancer Screening 03/21/2025 DIABETES ANNUAL FOOT EXAM 07/06/20252024, 03/26/2021, 02/26/2021, Additional history exists DTAP/TDAP/TD VACCINES (8 - T d or Tdap) 09/30/2031 09/29/2021, 09/28/2017, 05/20/1988, Additional history exists COVID-19 Vaccine Completed 01/03/2024, 01/2022, 08/26/2020, Additional history exists Procedures Procedure Name Priority Date/Time Associated Diagnosis Comments MICROALBUMIN/CREATIN INE RATIO, RANDOM UR Routine 02/26/2023 12:04 PM SERVICE COORDINATOR Type 2 diabetes mellitus without complication, without long-term current use of insulin ([facility]) HEMOGLOBIN A1C Routine 02/26/2023 11:52 AM SERVICE COORDINATOR Type 2 diabetes mellitus without complication, without long-term current use of insulin ([facility]) LIPID PANEL Routine 05/07/2022 HM DIABETES FOOT EXAM Routine 03/26/2021 Type 2 diabetes mellitus with diabetic neuropathy, without long-term current use of insulin (CMS/HCC) MAMMO 3D RAD SCREEN BILAT W OR WO CAD Routine 07/09/2020 12:08 PM CDT Encounter for screening mammogram for malignant neoplasm of breast COLONOSCOPY REPORT 03/21/2020 10 :02 AM SERVICE COORDINATOR from Last 3 Months or Most Recently Relevant to Health Maintenance Results * MICROALBUMIN/CREATININE RATIO, RANDOM UR (02/26/2023 12:04 PM SERVICE COORDINATOR) Creatinine, Urine 136 20 - 275 mg/dL [facility] MICROALBUMIN, URINE 1.4 See Note: mg/dL [facility] Comment: Reference Range: Reference Range Not established MICROALBUMIN/CREAT RATIO, UR 10 <30 mcg/mg creat [facility] Comment: The ADA defines abnormalities in albumin excretion as follows: Albuminuria Category Result (mcg/mg creatinine) Normal to Mildly increased <30 Moderately increased 30-299 Severely increased > OR = 300 The ADA recommends that at least two of three specimens collected within a 3-6 month period be abnormal before considering a patient to be within a diagnostic category. Test Performed at: [facility] [address] [facility] [place] [address] Evonne Mckenna MD Urine URINE SPECIMEN OBTAINED BY CLEAN CATCH PROCEDURE / Unknown 02/26/2023 12:04 PM SERVICE COORDINATOR 02/27/2023 6:23 AM SERVICE COORDINATOR [facility] URINE ORDERABLES Final Re sult [facility] [phone] [facility] [address] [facility] [place] [address] * (ABNORMAL) HEMOGLOBIN A1C (02/26/2023 11:52 AM SERVICE COORDINATOR) HEMOGLOBIN A1C 5.7(H) <5.7 % of total [facility] Comment: For someone without known diabetes, a hemoglobin A1c value between 5.7% and 6.4% is consistent with prediabetes and should be confirmed with a follow-up test. For someone with known diabetes, a value <7% indicates that their diabetes is well controlled. A1c targets should be individualized based on duration of diabetes, age, comorbid conditions, and other considerations. This assay result is consistent with an increased risk of diabetes. Currently, no consensus exists regarding use of hemoglobin A1c for diagnosis of diabetes for children. ESTIMATED AVERAGE GLUCOSE (MG/DL) 117 mg/dL [facility] ESTIMATED AVERAGE GLUCOSE (MMOL/L) 6.5 mmol/L [facility] Comment: Test Performed at: [facility] [address] [place] [address] Evonne Mckenna MD Blood 02/26/2023 11:5 2 AM SERVICE COORDINATOR 02/27/2023 6:23 AM SERVICE COORDINATOR Zulma Rowan CURRICULUM ADVISORY TEACHER CHEMISTRY ORDERABLES Marisol l Result [facility] [phone] [facility] [address] [place] [address] * LIPID PANEL (05/07/2022) ABSTRACTED CHOLESTEROL 196 ABSTRACTED TRIGLYCERIDE 431 ABSTRACTED HDL 40 ABSTRACTED LDL CALCULATED Blood 05/07/2022 Abstract Provider CHEMISTRY ORDERABLES Final Res ult * HM DIABETES FOOT EXAM (03/26/2021) Draian Mena DP HEALTH MAINTENANCE Final Result * MAMMO SCRN BILAT 3D RAD W OR WO CAD (07/09/2020 12:08 PM CDT) Anatomical Region Laterality Modality Breast Bilateral Other Narrative 07/10/2020 10:33 AM CDT Bilateral Digital Mammogram with CAD and 3D Tomography Reason for Exam: Screening Comparison: No comparisons were made when reading this study. Technique: 3D MLO and CC digital tomosynthesis images were acquired and synthesized 2D images (C view) were generated. This digital mammogram was also analyzed by the Computer Aided Detection System CAD). Breast Composition: There are scattered areas of fibroglandular density. There are no suspicious masses, areas of architectural distortions, or microcalcifications to suggest malignancy. No significant new findings since the prior mammogram(s). Procedure Note Cherrie Valladares AmyDO - 09/23/2020 Bilateral Digital Mammogram with CAD and 3D Tomography Reason for Exam: Screening Comparison: No comparisons were made when reading this study. Technique: 3D MLO and CC digital tomosynthesis images were acquired and synthesized 2D images (C view) were generated. This digital mammogram was also analyzed by the Computer Aided Detection System CAD). Breast Composition: There are scattered areas of fibroglandulardensity. There are no suspicious masses, areas of architectural distortions, or microcalcifications to suggest malignancy. No significant new findings since the prior mammogram(s). us Summer Cortes MD MAMMO ORDERABLES Fin al Result * COLONOSCOPY REPORT (03/21/2020 10:02 AM SERVICE COORDINATOR) Narrative Procedure Note Song Lemus DO - 03/21/2020 10:02 AM CST Procedures signed by Song Lemus DO at 03/21/2020 10:02 AM Author: Song Lemus DO Service: -- Author Type: Physician Filed: 03/21/2020 10:02 AM Date of Service: 03/21/2020 10:02 AM Status:Signed Improvement Manager: Song Lemus DO (Physician) Procedure Orders 1. COLONOSCOPY REPORT [[id number]] ordered by Song Lemus DOat 03/21/[address] [place] [address] GI Patient Name: Stefani Olmedo Procedure Date: 03/21/2020 Date of : 1965 Admit Type: Outpatient Age: 55 Attending MD: Song Lemus MD Procedure: Colonoscopy Indications: High risk colon cancer surveillance: Personal history of colonic polyps Providers: Song Lemus MD Referring MD: Edu Almaraz Medicines: Propofol per Anesthesia Complications: No immediate complications. Procedure: After I obtained informed consent, the scope was passed under direct vision. Throughout the procedure, the patient's blood pressure, pulse, and oxygen saturations were monitored continuously. The Colonoscope was introduced through the anus and advanced to the cecum, identified by appendiceal orifice and ileocecal valve. The colonoscopy was performed without difficulty. The patient tolerated the procedure well. The quality of the bowel preparation was good. Estimated Blood Loss: Estimated blood loss was minimal. Findings: Two sessile polyps were found in the transverse colon and ascending colon. The polyps were 4 to 6 mm in size. These polyps were removed with a cold snare. Resection and retrieval were complete. A few small and large-mouthed diverticula were found in the sigmoid colon. There was a medium-sized lipoma, 10 mm in diameter, in the ascending colon. Internal hemorrhoids were found during retroflexion. The hemorrhoids were small. Impression: - Two 4 to 6 mm polyps in the transverse colon and in the ascending colon, removed with a cold snare. Resected and retrieved. - Diverticulosis in the sigmoid colon. - Medium-sized lipoma in the ascending colon. - Internal hemorrhoids. Recommendation: - Patient has a contact number available for emergencies. The signs and symptoms of potential delayed complications were discussed with the patient. Return to normal activities tomorrow. Written discharge instructions were provided to the patient. - Resume previous diet. - Continue present medications. - Repeat colonoscopy date to be determined after pending pathology results are reviewed for surveillance. Song Lemus MD 03/21/2020 10:02:01 AM Number of Addenda: 0 Note Initiated On: 03/21/2020 9:28 AM Scope Withdrawal Time 0 hours 12 minutes 50 seconds Scope In: 9:41:33 AM Scope Out: 9:58:02 AM [address] [place], [place] Song Lemus DO GI PROCEDURE ORDERABLES Edited Result - Final from Last 3 Months or Most Recently Relevant to Health Maintenance Insurance [place] * Guarantor: STEFANI OLMEDO Account Type Relation to Patient Date of Phone Billing Address Personal/Family [address] [place] [address] RX INFOCROSSING Medicaid RX [facility] [employer] NO INSURANCE (INTERNAL) Member Subscriber Plan / Payer (Ef fective for All Dates) Name:Stefani Olmedo Member ID:Not on file Relation to Subscriber:Self Name:Stefani Olmedo Subscriber ID:Not on file Payer ID:Not on file Group ID:Not on file Type:[facility] Internal Plans Address: [address] [place] Advance Directives For more information, please contact: [phone] * Full Code (Latest Code Status on File) Date Activated Date Inactivated Comments 08/13/2022 12:07 AM 08/14/2022 5:02 PM * Full Code Date Activated Date Inactivated Comments 12/25/2021 3:38 AM 12/27/2021 4:16 PM Care Teams Dumpman Relationship Specialty Start Date End Date Mario Allan DO [address] [place] [address] PCP - General Family Practice 01/29/23
--- NOTE | 2024-10-28 14:27 | W.ED.GENADLT ---
HPI - General Adult General: Chief complaint: General Medical Stated complaint: dizzy, hurting all over Time Seen by Provider: 10/28/24 13:09 History of Present Illness: Patient is 59-year-old female that presents to ED with multiple complaints of arthralgias, nausea, vomiting, and not sleeping, ongoing. As week or so. She has seen her primary care physician in the last month, and placed on celecoxib 400 mg daily. Despite care, she has ongoing complaints of multiple sites of arthralgias. No sensation changes. Onset (ago): day(s) Associated symptoms: Reports nausea and vomiting; Deny chest pain, dyspnea, headache(s), rash or palpitations Related Data Home Medications ?Medication ?Instructions ?Recorded ?Confirmed dulaglutide 1.5 mg/0.5 mL 1.5 mg SUBCUT Q7D 11/16/23 09/26/24 subcutaneous pen injector (Trulicity) gabapentin 100 mg capsule 100 mg PO TID 11/16/23 09/26/24 cetirizine 10 mg tablet 10 mg PO DAILY 05/09/24 09/26/24 lisinopril 5 mg tablet 5 mg PO DAILY 05/09/24 09/26/24 metoclopramide HCl 10 mg tablet 10 mg PO QID 05/09/24 09/26/24 oxybutynin chloride 10 mg 10 mg PO DAILY 05/09/24 09/26/24 tablet,extended release 24 hr Previous Rx's ?Medication ?Instructions ?Recorded pantoprazole 40 mg tablet,delayed 40 mg PO BID 6 weeks #84 tabs 04/14/24 release (Protonix) cyclobenzaprine 10 mg tablet 10 mg PO TID #14 tabs 06/16/24 methylprednisolone 4 mg tablets in See Rx Instructions PO .COMPLEX 06/16/24 a dose pack (Medrol (Naresh)) #21 ea naproxen 500 mg tablet 500 mg PO BID PRN pain #20 tabs 06/16/24 fluoxetine 10 mg capsule 30 mg (3 x 10 mg) PO DAILY #90 caps 09/26/24 haloperidol 10 mg tablet 10 mg PO .qhs 30 days #30 tabs 09/26/24 mirtazapine 15 mg tablet 15 mg PO .hs #30 tabs 09/26/24 methocarbamol 500 mg tablet 500 mg PO TID PRN muscle spasm #30 10/28/24 tabs ondansetron 4 mg disintegrating 4 mg PO Q8H PRN nausea and 10/28/24 tablet vomiting 4 days #14 tabs pantoprazole 40 mg tablet,delayed 40 mg PO DAILY 30 days #30 tabs 10/28/24 release sucralfate 1 gram tablet (Carafate) 1 g PO BID 30 days #60 tabs 10/28/24 Allergies Allergy/AdvReac Type Severity Reaction Status Date / Time Iodinated Contrast Media Allergy ALGY-Rash Verified 09/26/24 11:52 Penicillins Allergy ALGY-Swell Verified 09/26/24 11:52 Lip/Tongue/Throat Review of Systems General: Reports: 10 or more systems reviewed and unremarkable except in HPI and below Const: Denies: fever(s) or chills Eyes: Denies: change in vision or blurry vision ENMT: Denies: throat pain or uvular edema Card: Denies: chest pain or palpitations Resp: Denies: dyspnea or non-productive cough GI: Reports: nausea, vomiting and coffee ground emesis; Denies: abdominal pain : Denies: flank pain, difficulty voiding or dysuria Musc: Reports: extremity pain, joint pain and joint stiffness; Denies: neck pain, back pain, extremity swelling, joint swelling, joint redness, joint warmth, limited range of motion or muscle cramps Skin/Breast: Denies: rash, pruritus, erythema or skin pain Neuro: Denies: headache(s), numbness in extremities or weakness in extremities Psych: Denies: anxiety or depression Endo: Denies: polyuria or polydipsia All/Imm: Denies: urticaria or throat swelling PFS ED PFSH: Medical History (Updated 10/28/24 @ 18:25 by PAUL Mathew) Depression Psychiatric care Dysthymic disorder Social History Smoking and tobacco/nicotine status: current every day tobacco/nicotine user (04/22 PPD) Physical Exam Const: COMMON NORMALS: patient oriented x3 HENMT: THROAT: no uvular edema Lymph: LYMPHATIC: no lymphadenopathy noted Chest: COMMONS NORMALS: normal inspection of the chest and normal palpation of entire chest wall Resp: COMMON NORMALS: normal respiratory effort and No retractions Cardio: COMMON NORMALS: regular rate and regular rhythm RATE: regular rate RHYTHM: regular rhythm GI: COMMON NORMALS: Normal to inspection, nondistended, normoactive bowel sounds present, Soft to palpation and non-tender INSPECTION: Yes normal to inspection PALPATION: Yes Soft to palpation : COMMON NORMALS: Yes no CVA tenderness BLADDER/KIDNEY EXAM: Yes no CVA tenderness Back/Pelvis: COMMON NORMALS: no CVA tenderness Extremity: COMMON NORMALS: normal to inspection, full ROM and capillary refill normal Neuro: COMMON NORMALS: patient oriented x3 and CN's II-XII intact bilaterally Psych: COMMON NORMALS: mental status grossly normal and Normal thought process present THOUGHT PROCESS: Normal thought process present Skin: COMMON NORMALS: no rashes or lesions noted GENERAL SKIN EXAM: no rashes or lesions noted Course Vital Signs: Vital signs: Vital Signs Temperature 98.0 F 10/28/24 12:24 Pulse Rate 78 10/28/24 17:33 Respiratory Rate 16 10/28/24 16:22 Blood Pressure 127/69 10/28/24 17:33 Pulse Oximetry 94 10/28/24 17:33 Oxygen Delivery Me thod Room Air 10/28/24 17:00 [facility] - General Adult Medical Decision Making Patient is a 59-year-old female with complaints of arthralgias, nausea, vomiting. She did not have abdominal pain. Her emesis was black, and I checked a gastric occult which was positive for blood. I suspect underlying gastritis due to her NSAID use, typically ibuprofen, celecoxib. Discussed with patient. Will treat as gastric ulcer, and have patient hold NSAIDs. She is a nondrinker and does not consume alcohol. She has been instructed to utilize Tylenol only for pain and return to her primary care physician. Unfortunately, her CO2 was 10, indicating a metabolic acidosis. Multiple IVs blew. Patient did tolerate intake of 1500 mL by mouth without nausea and vomiting after Zofran ODT. Pantoprazole was able to be administered IV prior to losing her IV. Carafate was given to patient. Will continue with these regimens, and patient will follow-up with her primary care. Differential Diagnosis Gastric ulcer, autoimmune: pmr, RA, lupus, psoriatic arthritis. Gastroenteritis Medical Records I reviewed the patient's medical records. Lab Data I reviewed the patient's lab results. 10/28/24 15:00 10/28/24 15:00 Laboratory Results WBC 12.74 10^3/uL (3.29-11.43) H 10/28/24 15:00 RBC 4.30 10^6/uL (3.85-5.65) 10/28/24 15:00 Hgb 13.10 g/dL (11.27-16.99) 10/28/24 15:00 Hct 39.7 % (36-47) 10/28/24 15:00 MCV 92.3 fl (85-98) 10/28/24 15:00 MCH 30.5 pg (27-33) 10/28/24 15:00 MCHC 33.0 g/dL (30-55) 10/28/24 15:00 RDW 14.7 % (12.1-15.1) 10/28/24 15:00 Plt Count 361 10^3/cmm (157-399) 10/28/24 15:00 MPV 8.2 fL (7.4-10.4) 10/28/24 15:00 Neut % (Auto) 87.7 % 10/28/24 15:00 Lymph % (Auto) 8.3 % 10/28/24 15:00 Ector % (Auto) 3.4 % 10/28/24 15:00 Eos % (Auto) 0.0 % 10/28/24 15:00 Baso % (Auto) 0.2 % 10/28/24 15:00 Neut # (Auto) 11.18 10^3/uL (1.8-7.7) H 10/28/24 15:00 Lymph # (Auto) 1.1 10^3/uL (0.8-4.8) 10/28/24 15:00 Ector # (Auto) 0.4 10^3/uL (0.2-0.9) 10/28/24 15:00 Eos # (Auto) 0.0 10^3/uL (0.0-0.8) 10/28/24 15:00 Baso # (Auto) 0.0 10^3/uL (0.0-0.1) 10/28/24 15:00 Nucleated RBC % (auto) 0 % 10/28/24 15:00 Nucleated RBCs # 0.0 /100WBC 10/28/24 15:00 Sodium 134 mmol/L (136-145) L 10/28/24 15:00 Potassium 3.7 mmol/L (3.5-5.1) 10/28/24 15:00 Chloride 105 mmol/L (98-107) 10/28/24 15:00 Carbon Dioxide 10 mmol/L (22-29) L 10/28/24 15:00 Anion Gap 22.7 (5-19) H 10/28/24 15:00 BUN 25 mg/dL (8-23) H 10/28/24 15:00 Creatinine 0.9 mg/dL (0.5-0.9) 10/28/24 15:00 GFR Calculation 63.7 mL/min (90-130) L 10/28/24 15:00 Glucose 117 mg/dL (65-115) H 10/28/24 15:00 Calculated Osmolality 283 mOsm/kg (285-295) L 10/28/24 15:00 Calcium 10.0 mg/dL (8.5-10.5) 10/28/24 15:00 Total Bilirubin 0.3 mg/dL (0.15-1.2) 10/28/24 15:00 AST 23 U/L (0-32) 10/28/24 15:00 ALT 84 U/L (0-33) H 10/28/24 15:00 Alkaline Phosphatase 103 U/L (35-105) 10/28/24 15:00 C-Reactive Protein 8.3 mg/L (0.0-4.9) H 10/28/24 15:00 Total Protein 6.9 g/dL (6.6-8.7) 10/28/24 15:00 Albumin 4.2 g/dL (3.5-5.2) 10/28/24 15:00 Globulin 2.7 g/dL (1.3-4.6) 10/28/24 15:00 Urine Color Yellow (Yellow) 10/28/24 15:00 Urine Appearance Clear (CLEAR) 10/28/24 15:00 Urine pH 6.0 (5-7) 10/28/24 15:00 Ur Specific Kunkle 1.022 (1.005-1.030) 10/28/24 15:00 Urine Protein 2+ (Negative) A 10/28/24 15:00 Urine Glucose (UA) Negative (Normal) 10/28/24 15:00 Urine Ketones 3+ (Negative) H 10/28/24 15:00 Urine Blood Trace (Negative) A 10/28/24 15:00 Urine Nitrate Negative (Negative) 10/28/24 15:00 Urine Bilirubin Negative (Negative) 10/28/24 15:00 Urine Urobilinogen 1.0 mg/dL (Negative) 10/28/24 15:00 Ur Leukocyte Esterase Negative (Negative) 10/28/24 15:00 Urine RBC 0-2 /hpf (0-2) 10/28/24 15:00 Urine WBC 0-5 /hpf (0-5) 10/28/24 15:00 Ur Squamous Epith Cells 0-5 /hpf (0-5) 10/28/24 15:00 Amorphous Sediment Not Reportable 10/28/24 15:00 Urine Bacteria None seen /hpf (NONE) 10/28/24 15:00 Hyaline Casts 1.65 /lpf 10/28/24 15:00 Gastric Occult Blood Positive (Negative) H 10/28/24 14:50 No radiology studies performed this visit Discharge Plan Discharge Patient Disposition: Home Clinical Impression: Metabolic acidosis Gastritis Qualifiers: Gastritis type: superficial Chronicity: acute Gastritis bleeding: with bleeding Qualified Code(s): K29.01 - Acute gastritis with bleeding Arthralgia Qualifiers: Joint pain location: unspecified Qualified Code(s): M25.50 - Pain in unspecified joint Condition: Stable Prescriptions: New ondansetron 4 mg tablet,disintegrating 4 mg PO Q8H PRN (Reason: nausea and vomiting) 4 Days Qty: 14 0RF pantoprazole 40 mg tablet,delayed release (DR/EC) 40 mg PO DAILY 30 Days Qty: 30 0RF sucralfate [Carafate] 1 gram tablet 1 g PO BID 30 Days Qty: 60 0RF methocarbamol 500 mg tablet 500 mg PO TID PRN (Reason: muscle spasm) Qty: 30 0RF No Action pantoprazole [Protonix] 40 mg tablet,delayed release (DR/EC) 40 mg PO BID 42 Days Qty: 84 1RF fluoxetine 10 mg capsule 30 mg PO DAILY Qty: 90 3RF haloperidol 10 mg tablet 10 mg PO .qhs 30 Days Qty: 30 3RF mirtazapine 15 mg tablet 15 mg PO .hs Qty: 30 3RF cetirizine 10 mg tablet 10 mg PO DAILY oxybutynin chloride 10 mg tablet extended release 24hr 10 mg PO DAILY lisinopril 5 mg tablet 5 mg PO DAILY metoclopramide HCl 10 mg tablet 10 mg PO QID gabapentin 100 mg Capsule 100 mg PO TID Trulicity 1.5 mg/0.5 mL Pen Injector 1.5 mg SUBCUT Q7D cyclobenzaprine 10 mg tablet 10 mg PO TID Qty: 14 0RF methylprednisolone [Medrol (Naresh)] 4 mg tablets,dose pack See Rx Instructions .ROUTE .COMPLEX Qty: 21 0RF Rx Instructions: orally per package directions naproxen 500 mg tablet 500 mg PO BID PRN (Reason: pain) Qty: 20 0RF Discharge Orders: Discharge ED (Routine); Ordered 10/28/24 Ordered By: Martha Mora Discharge Diet: Clear Liquid and Full LIquid Discharge Activity: Resume usual activity Patient Instructions: Full Liquid Diet, Gastritis (ED), Clear Liquid Diet (ED), Patient Portal & Sofia Instructions Activity Restrictions/Additional Instructions: Return to ED for worsening pain. If you have severe abdominal pain, return to ED, ongoing nausea, vomiting. Do not take any NSAIDs which are celecoxib, naproxen/Aleve, ibuprofen, aspirin, Excedrin, BC powder. Tylenol only for pain. Do not do this for 30 days. You will need follow-up labs next week with your primary care physician. As we discussed, call on Wednesday morning for an appointment. Return to ED for fever of 100.4 or greater, refractory or ongoing nausea, vomiting, inability to eat. Print Language: Portuguese Coding Level of Care Code ED [employer] for Daren Henry
[2024-10-28] MEDS: ondansetron hcl ODT 4 mg Tab PO (14:50)
[2024-10-28 15:02] LABS: Gastricult Occult Blood Positive (Negative); Gastricult Occult PH 3.0 PH (1.5-3.5)
[2024-10-28 15:13] LABS: Hematocrit 39.7 % (36-47); Hemoglobin 13.10 g/dL (11.27-16.99); Mean Corpuscular HGB Conc 33.0 g/dL (30-55); Mean Corpuscular Hemoglobin 30.5 pg (27-33); Mean Corpuscular Volume 92.3 fl (85-98); Nucleated Red Blood Cells % 0 %; Platelet Count 361 10^3/cmm (157-399); Red Blood Count 4.30 10^6/uL (3.85-5.65); White Blood Count 12.74 10^3/uL (3.29-11.43)
[2024-10-28 15:26] LABS: Alanine Aminotransferase 84 U/L (0-33); Albumin Level 4.2 g/dL (3.5-5.2); Alkaline Phosphatase 103 U/L (35-105); Aspartate Amino Transferase 23 U/L (0-32); Blood Urea Nitrogen 25 mg/dL (8-23); Calcium 10.0 mg/dL (8.5-10.5); Carbon Dioxide 10 mmol/L (22-29); Chloride 105 mmol/L (98-107); Creatinine Clr Calc Pharmacy 57.5521; Globulin 2.7 g/dL (1.3-4.6); Glucose 117 mg/dL (65-115); Osmolality Calculated 283 mOsm/kg (285-295); Sodium 134 mmol/L (136-145); Total Protein 6.9 g/dL (6.6-8.7)
[2024-10-28 15:28] LABS: Glucose Urine UA Negative (Normal); Nitrate Urine Negative (Negative); Specific Gravity, Urine 1.022 (1.005-1.030)
[2024-10-28 15:32] LABS: Add Urine Microscopic? YES
[2024-10-28 15:38] LABS: Anion Gap 22.7 (5-19); Potassium 3.7 mmol/L (3.5-5.1)
[2024-10-28] MEDS: pantoprazole 40 mg SDV 80 MG IVP (15:53)
[2024-10-28] MEDS: orphenadrine 30 mg/mL Inj 2 mL 60 MG IM (15:53)
[2024-10-28 16:22] VITALS: BP 134/93; PULSE 101; RESP 16; O2SAT 99
--- NOTE | 2024-10-28 16:26 | PC.NURSE ---
US IV to right upper arm infiltrated, swelling noted, IV removed and pressure dressing applied. Charge nurse notified.
--- NOTE | 2024-10-28 16:53 | PC.NURSE ---
pt's IV not usable, Wittke states to do PO trial oral fluids.
--- NOTE | 2024-10-28 16:56 | PC.NURSE ---
pt given water to drink, pt voiced understanding to drink.
[2024-10-28 17:00] VITALS: PULSE 76; O2SAT 99
[2024-10-28] MEDS: HYDROcodone-acetaminophen 10-325 mg Tablet 1 TAB PO (17:28)
[2024-10-28 17:33] VITALS: BP 127/69; PULSE 78; O2SAT 94
== END 2024-10-28 17:35 | disposition home or self-care (01) ==
PROVIDERS: Emergency Provider Physician Assistant
DX: E87.20 Acidosis, unspecified (principal); K29.01 Acute gastritis with bleeding; M25.50 Pain in unspecified joint; Z79.85 Long-term (current) use of injectable non-insulin antidiabetic drugs; F17.210 Nicotine dependence, cigarettes, uncomplicated
CPT/HCPCS: 36415; 80053; 81001; 82271; 85025; 86140; 96372; 96374; 99284; J2360; J2470; J7030; J9999; Q0162